=== PATIENT | female | born 1970 | race Caucasian/White ===

== ENCOUNTER 2019-02-09 08:18 | Observation (INO) ==
[2019-02-09] MEDS ORDERED: MECLIZINE HCL 25 MG TAB PO STA (08:42)
[2019-02-09] MEDS ORDERED: SODIUM CHLORIDE 0.9% 1000ML 1,000 ML IV SCH (08:45)
--- NOTE | 2019-02-09 08:50 | Emergency Department Note ---
History of Present Illness General Chief complaint: Syncope (Near Syncope) Stated complaint: FEELS LIKE IM GOING TO PASSOUT,UNSTEADY WHEN WALKI Time Seen by Provider: 02/09/19 08:32 History of Present Illness Maximum Pain Intensity: 0 This is a 49-year-old female that presents to the emergency department via private vehicle with complaints of "feels like going to pass out, unsteady when walking". Patient has a history of vertigo 15 years ago. 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 She notes that when she woke up around 6 AM she went up to walk and felt like she was going to fall over and then she noticed the room felt like it was spinning a little bit and as if she was going to pass out. This was with walking when she lexi from the bed but then went to lay back down and felt worse. She notes that all of her symptoms now are worsened with position change of the head. She is unsure if she truly does experience an vertigo and notes it was not nearly as severe as it was 15 years ago. No headache or diplopia. No chest pain or shortness of breath. She notes that she did not drink much fluid over the evening. She also feels like she may be getting a URI with her son having similar symptoms. No speech troubles or weakness. Home Medications Home Medications Medication Instructions Recorded Confirmed Type biotin 0 mg PO QAM 02/09/19 02/09/19 History metoprolol tartrate 50 mg PO BID 02/09/19 02/09/19 History Allergies Allergy/AdvReac Type Severity Reaction Status Date / Time Sulfa (Sulfonamide Allergy Severe feels like Unverified 02/09/19 09:10 Antibiotics) heart is pounding out of chest Past Med/Surg History Medical History History of hysterectomy (Chronic) 02/2011 - uterus, cervix removed Anxiety (Chronic) Obesity (Chronic) Hypertension (Chronic) Surgical History S/P BSO (bilateral salpingo-oophorectomy) (Chronic) 07/2012 History of incisional hernia repair (Chronic) 08/20/2012 Dr Adames - [facility] History of cholecystectomy (Chronic) 1999 No pertinent past surgical history Family History Grandfather Coronary heart disease Sister Hypertension Mother Hypertension Social History Preferred Language: [place] Island[place] Communication Ability: Effective Chief Of Pediatric Urology Required: No Beliefs That Will Affect Care: None Current Living Situation: Family Current Living Situation Comment: lives with son Other Information That Helps Us Care for You: No Feels Safe at Home: Yes Safety Concerns: Feels Safe At This Time Smoking Status: Never smoker Do You Dip or Chew Tobacco: No Second Hand Exposure: No Tobacco Cessation Education Requested by Patient: No Hx Alcohol Use: No Hx Substance Use: No Review of Systems A total of 10 systems reviewed and were otherwise negative Physical Exam Vital Signs Vital Signs - 24 hr 02/09/19 08:21 02/09/19 08:36 02/09/19 08:40 Temperature 36.4 C L Temperature Source Oral Sepsis Recent Fever Within 48 Hours No Sepsis New/Unexplained Change in Mental Status No Sepsis Action Taken by Nursing No Action Required Pulse Rate - Lying Pulse Rate - Sitting Pulse Rate - Standing Pulse Rate 60 63 61 Pulse Rate [Apical] Pulse Rate from SpO2 Sensor Pulse Rhythm [Apical] Pulse Strength [Apical] Respiratory Rate 18 21 13 Respiratory Effort / Characteristics Non-Labored Spontaneous Respiratory Depth Normal Respiratory Pattern Regular Blood Pressure - Lying Blood Pressure - Sitting Blood Pressure- Standing Blood Pressure 170/112 H Blood Pressure [Right Arm] Blood Pressure Mean 131 Blood Pressure Mean [Right Arm] Blood Pressure Position [Right Arm] Pulse Oximetry 98 Oxygen Delivery Method Room Air 02/09/19 08:50 02/09/19 09:00 02/09/19 09:06 Temperature Temperature Source Sepsis Recent Fever Within 48 Hours Sepsis New/Unexplained Change in Mental Status Sepsis Action Taken by Nursing Pulse Rate - Lying 57 L Pulse Rate - Sitting 67 Pulse Rate - Standing 62 Pulse Rate 62 56 L 59 L Pulse Rate [Apical] Pulse Rate from SpO2 Sensor Pulse Rhythm [Apical] Pulse Strength [Apical] Respiratory Rate 18 20 16 Respiratory Effort / Characteristics Respiratory Depth Respiratory Pattern Blood Pressure - Lying 156/101 H Blood Pressure - Sitting 169/104 H Blood Pressure- Standing 195/99 H Blood Pressure Blood Pressure [Right Arm] Blood Pressure Mean Blood Pressure Mean [Right Arm] Blood Pressure Position [Right Arm] Pulse Oximetry Oxygen Delivery Method Room Air 02/09/19 09:07 02/09/19 09:08 02/09/19 09:09 Temperature Temperature Source Sepsis Recent Fever Within 48 Hours Sepsis New/Unexplained Change in Mental Status Sepsis Action Taken by Nursing Pulse Rate - Lying Pulse Rate - Sitting Pulse Rate - Standing Pulse Rate 63 66 64 Pulse Rate [Apical] Pulse Rate from SpO2 Sensor 64 65 63 Pulse Rhythm [Apical] Pulse Strength [Apical] Respiratory Rate 18 14 20 Respiratory Effort / Characteristics Respiratory Depth Respiratory Pattern Blood Pressure - Lying Blood Pressure - Sitting Blood Pressure- Standing Blood Pressure 156/101 H 169/104 H 195/99 H Blood Pressure [Right Arm] Blood Pressure Mean 119 125 131 Blood Pressure Mean [Right Arm] Blood Pressure Position [Right Arm] Pulse Oximetry 97 97 97 Oxygen Delivery Method 02/09/19 09:10 02/09/19 09:11 02/09/19 09:12 Temperature Temperature Source Sepsis Recent Fever Within 48 Hours Sepsis New/Unexplained Change in Mental Status Sepsis Action Taken by Nursing Pulse Rate - Lying Pulse Rate - Sitting Pulse Rate - Standing Pulse Rate 57 L 57 L Pulse Rate [Apical] 57 L Pulse Rate from SpO2 Sensor 58 L 56 L Pulse Rhythm [Apical] Regular Pulse Strength [Apical] Normal Respiratory Rate 18 21 17 Respiratory Effort / Characteristics Non-Labored Respiratory Depth Normal Respiratory Pattern Regular Blood Pressure - Lying Blood Pressure - Sitting Blood Pressure- Standing Blood Pressure 160/90 H Blood Pressure [Right Arm] 160/90 H Blood Pressure Mean 113 Blood Pressure Mean [Right Arm] 113 Blood Pressure Position [Right Arm] Sitting Pulse Oximetry 97 97 97 Oxygen Delivery Method Room Air 02/09/19 09:20 02/09/19 09:30 02/09/19 09:37 Temperature Temperature Source Sepsis Recent Fever Within 48 Hours Sepsis New/Unexplained Change in Mental Status Sepsis Action Taken by Nursing Pulse Rate - Lying Pulse Rate - Sitting Pulse Rate - Standing Pulse Rate 53 L 55 L 54 L Pulse Rate [Apical] Pulse Rate from SpO2 Sensor 52 L 56 L 54 L Pulse Rhythm [Apical] Pulse Strength [Apical] Respiratory Rate 14 25 H 19 Respiratory Effort / Characteristics Respiratory Depth Respiratory Pattern Blood Pressure - Lying Blood Pressure - Sitting Blood Pressure- Standing Blood Pressure 141/95 H Blood Pressure [Right Arm] Blood Pressure Mean 110 Blood Pressure Mean [Right Arm] Blood Pressure Position [Right Arm] Pulse Oximetry 97 97 98 Oxygen Delivery Method 02/09/19 09:40 02/09/19 09:50 02/09/19 10:02 Temperature Temperature Source Sepsis Recent Fever Within 48 Hours Sepsis New/Unexplained Change in Mental Status Sepsis Action Taken by Nursing Pulse Rate - Lying Pulse Rate - Sitting Pulse Rate - Standing Pulse Rate 59 L 62 58 L Pulse Rate [Apical] Pulse Rate from SpO2 Sensor 59 L 61 Pulse Rhythm [Apical] Pulse Strength [Apical] Respiratory Rate 20 15 21 Respiratory Effort / Characteristics Respiratory Depth Respiratory Pattern Blood Pressure - Lying Blood Pressure - Sitting Blood Pressure- Standing Blood Pressure Blood Pressure [Right Arm] Blood Pressure Mean Blood Pressure Mean [Right Arm] Blood Pressure Position [Right Arm] Pulse Oximetry 99 100 Oxygen Delivery Method 02/09/19 10:03 02/09/19 10:10 02/09/19 10:20 Temperature Temperature Source Sepsis Recent Fever Within 48 Hours Sepsis New/Unexplained Change in Mental Status Sepsis Action Taken by Nursing Pulse Rate - Lying Pulse Rate - Sitting Pulse Rate - Standing Pulse Rate 59 L 55 L 56 L Pulse Rate [Apical] Pulse Rate from SpO2 Sensor 58 L 56 L 56 L Pulse Rhythm [Apical] Pulse Strength [Apical] Respiratory Rate 17 16 18 Respiratory Effort / Characteristics Respiratory Depth Respiratory Pattern Blood Pressure - Lying Blood Pressure - Sitting Blood Pressure- Standing Blood Pressure 150/127 H Blood Pressure [Right Arm] Blood Pressure Mean 134 Blood Pressure Mean [Right Arm] Blood Pressure Position [Right Arm] Pulse Oximetry 97 97 97 Oxygen Delivery Method 02/09/19 10:30 02/09/19 10:34 02/09/19 11:49 Temperature Temperature Source Sepsis Recent Fever Within 48 Hours Sepsis New/Unexplained Change in Mental Status Sepsis Action Taken by Nursing Pulse Rate - Lying Pulse Rate - Sitting Pulse Rate - Standing Pulse Rate 54 L 61 Pulse Rate [Apical] Pulse Rate from SpO2 Sensor 54 L Pulse Rhythm [Apical] Pulse Strength [Apical] Respiratory Rate 20 18 Respiratory Effort / Characteristics Respiratory Depth Respiratory Pattern Blood Pressure - Lying Blood Pressure - Sitting Blood Pressure- Standing Blood Pressure 124/89 Blood Pressure [Right Arm] 120/72 Blood Pressure Mean Blood Pressure Mean [Right Arm] 88 Blood Pressure Position [Right Arm] Pulse Oximetry 96 96 Oxygen Delivery Method Room Air VITAL SIGNS - Vital signs and nursing notes were reviewed. Hypertensive, afebrile. GENERAL -49-year-old female appearing her stated age who is in no acute distress. Communicates well with provider and answers questions appropriately. SKIN - Without rashes. No meningeal or petechial rash. HEAD - NC/AT. EYES - PERRL with EOMI bilaterally. Sclera anicteric. EARS - No deformities of external structures noted on gross examination bilaterally. No pain elicited with palpation of the tragus bilaterally. Tympanic membranes pearly lindo without retraction or bulging. No fluid or purulent material visualized behind the TM. Handle of malleus, umbo, cone of light, pars tensa/flaccid all easily visualized. NOSE - Midline and without cyanosis. No epistaxis or purulent drainage noted. Septum midline without deviation or septal hematoma noted. MOUTH/OROPHARYNX - Without perioral cyanosis. Buccal mucosa pink and moist and without leukoplakia. Tongue midline with equal elevation of palate bilaterally. No tonsillar hypertrophy, erythema, or exudates noted. Good dentition noted. NECK - Neck with FROM. Supple to palpation. No lymphadenopathy noted. No nuchal rigidity. LUNGS - Chest wall symmetric without accessory muscle use, intercostals retractions, or central cyanosis. Normal vesicular breath sounds CTA B/L. No wheezes, rales, or rhonchi appreciated. CARDIAC - RRR with S1/S2. No murmur, rubs, or gallops appreciated. ABDOMEN - Abdominal contour normla without pulsations or visible masses. BS normoactive all four quadrants. No tenderness, palpable masses, he patosplenomegaly, or ascites noted. EXTREMITIES - No clubbing or peripheral cyanosis. No pretibial edema present. +5/5 strength noted in UE/LE bilaterally. NEUROLOGIC - Cranial nerves II through XII grossly intact. Sensory intact to light touch throughout. PSYCH - A&Ox3 and cooperates fully with examiner. Pt is very pleasant and interacts well with examiner. Course Administered Medications Discontinued Medications Aspirin (Aspirin) 324 mg PO NOW STA Stop: 02/09/19 11:26 Last Admin: 02/09/19 11:33 Dose: 324 mg Documented by: [id number] Sodium Chloride (Nss 1000ml) 1,000 mls @ 999 mls/hr IV .Q1H1M GEN Stop: 02/09/19 09:45 Last Infusion: 02/09/19 10:29 Dose: 0 mls/hr Documented by: [id number] Admin: 02/09/19 09:10 Dose: 999 mls/hr Documented by: [id number] Meclizine HCl (Antivert) 25 mg PO NOW STA Stop: 02/09/19 08:43 Last Admin: 02/09/19 08:53 Dose: 25 mg Documented by: [id number] Medical Decision Making Laboratory Data Result diagrams: 02/09/19 09:04 02/09/19 09:04 Lab Results 02/09/19 02/09/19 02/09/19 Range/Units 09:04 09:04 09:04 WBC 6.10 (4.8-10.8) K/uL RBC 4.73 (4.2-5.4) M/uL Hgb 13.4 (12.0-16.0) g/dL Hct 42.0 (37-47) % MCV 88.8 (80-100) fL MCH 28.3 (25-34) pg MCHC 31.9 L (32-36) g/dL RDW Std Deviation 46.3 (36.4-46.3) fL RDW Coeff of Keiry 14.3 (11.5-14.5) % Plt Count 169 (130-400) K/uL MPV 11.3 H (7.4-10.4) fL Immature Gran % (Auto) 0.2 % Neut % (Auto) 62.2 % Lymph % (Auto) 27.2 % [place] % (Auto) 8.5 % Eos % (Auto) 1.6 % Baso % (Auto) 0.3 % Immature Gran # (Auto) 0.01 (0.00-0.02) K/uL Neut # (Auto) 3.79 (1.4-6.5) K/uL Lymph # (Auto) 1.66 (1.2-3.4) K/uL [place] # (Auto) 0.52 (0.11-0.59) K/uL Eos # (Auto) 0.10 (0-0.5) K/uL Baso # (Auto) 0.02 (0-0.2) K/uL Sodium 144 (136-145) mmol/L Potassium 3.6 (3.5-5.1) mmol/L Chloride 109 H (98-107) mmol/L Carbon Dioxide 26 (21-32) mmol/L Anion Gap 8.0 (3-11) BUN 14 (7-18) mg/dl Creatinine 0.81 (0.6-1.2) mg/dl Est Cr Clr Drug Dosing 110.4 ml/min Est GFR ( Amer) 98.2 Est GFR (Non-Af Amer) 84.7 BUN/Creatinine Ratio 17.7 (10-20) Glucose 120 H (70-99) mg/dl Calcium 8.7 (8.5-10.1) mg/dl Magnesium 2.2 (1.8-2.4) mg/dl Total Bilirubin 0.7 (0.2-1) mg/dl AST 25 (15-37) U/L ALT 34 (12-78) U/L Alkaline Phosphatase 83 (45-117) U/L Troponin I (0-0.045) ng/ml Total Protein 6.8 (6.4-8.2) gm/dl Albumin 3.4 (3.4-5.0) gm/dl Globulin 3.4 (2.5-4.0) gm/dl Albumin/Globulin Ratio 1.0 (0.9-2) TSH 6.210 H (0.300-4.500) uIu/ml Free T4 1.05 (0.8-1.6) ng/dl HCG, Qual Negative (Negative) Urine Color Urine Appearance (Clear) Urine pH (4.5-7.5) Ur Specific [place] (1.000-1.030) Urine Protein (Negative) Urine Glucose (UA) (Negative) Urine Ketones (Negative) Urine Blood (Negative) Urine Nitrite (Negative) Urine Bilirubin (Negative) Urine Urobilinogen (Negative) Ur Leukocyte Esterase (Negative) 02/09/19 02/09/19 Range/Units 09:04 09:55 WBC (4.8-10.8) K/uL RBC (4.2-5.4) M/uL Hgb (12.0-16.0) g/dL Hct (37-47) % MCV (80-100) fL MCH (25-34) pg MCHC (32-36) g/dL RDW Std Deviation (36.4-46.3) fL RDW Coeff of Keiry (11.5-14.5) % Plt Count (130-400) K/uL MPV (7.4-10.4) fL Immature Gran % (Auto) % Neut % (Auto) % Lymph % (Auto) % [place] % (Auto) % Eos % (Auto) % Baso % (Auto) % Immature Gran # (Auto) (0.00-0.02) K/uL Neut # (Auto) (1.4-6.5) K/uL Lymph # (Auto) (1.2-3.4) K/uL [place] # (Auto) (0.11-0.59) K/uL Eos # (Auto) (0-0.5) K/uL Baso # (Auto) (0-0.2) K/uL Sodium (136-145) mmol/L Potassium (3.5-5.1) mmol/L Chloride (98-107) mmol/L Carbon Dioxide (21-32) mmol/L Anion Gap (3-11) BUN (7-18) mg/dl Creatinine (0.6-1.2) mg/dl Est Cr Clr Drug Dosing ml/min Est GFR ( Amer) Est GFR (Non-Af Amer) BUN/Creatinine Ratio (10-20) Glucose (70-99) mg/dl Calcium (8.5-10.1) mg/dl Magnesium (1.8-2.4) mg/dl Total Bilirubin (0.2-1) mg/dl AST (15-37) U/L ALT (12-78) U/L Alkaline Phosphatase (45-117) U/L Troponin I < 0.015 (0-0.045) ng/ml Total Protein (6.4-8.2) gm/dl Albumin (3.4-5.0) gm/dl Globulin (2.5-4.0) gm/dl Albumin/Globulin Ratio (0.9-2) TSH (0.300-4.500) uIu/ml Free T4 (0.8-1.6) ng/dl HCG, Qual (Negative) Urine Color Yellow Urine Appearance Clear (Clear) Urine pH 6.5 (4.5-7.5) Ur Specific [place] 1.013 (1.000-1.030) Urine Protein Negative (Negative) Urine Glucose (UA) Negative (Negative) Urine Ketones Negative (Negative) Urine Blood Negative (Negative) Urine Nitrite Negative (Negative) Urine Bilirubin Negative (Negative) Urine Urobilinogen Negative (Negative) Ur Leukocyte Esterase Negative (Negative) Imaging Data Radiologist's Impression: XR chest 1V portable CLINICAL HISTORY: near syncope dyspnea COMPARISON STUDY: 05/17/2011 FINDINGS: Mild cardia megaly. Lungs are clear. Diaphragms are smooth. IMPRESSION: Mild cardiomegaly. Otherwise negative study. The above report was generated using voice recognition software. It may contain grammatical, syntax or spelling errors. Electronically signed by: Bro Wyman M.D. 02/09/2019 8:55 AM MDM Narrative Patient was seen and evaluated as above in room A 11. Review was performed of nursing notes and vital signs. After obtaining a thorough history and physical examination the above work up was performed. She presents to us today with essentially near syncope. She appears to have symptoms that are likely from that of vertigo and noting that she had symptoms similar about 15 years ago. There is no chest pain or shortness of breath. A bedside EKG was performed and revealed normal sinus rhythm with T wave inversions in leads I, 2 as well as aVL, aVF, V3, 4 5 and 6. These were compared to the EKG on file in our hospital that was last in 2006. There is a significant change now. I was able to obtain an EKG from the [facility] system from 2011 and although the T wave inversions do not appear to be new the severity of these has changed. It is felt now that this warrants further workup here in the hospital given her symptoms as well as abnormal EKG. CBC reveals no leukocytosis or concerning anemia no emergent metabolic abnormality. Troponin is negative. Urinalysis is negative. Patient notes that she was informed she had an abnormal EKG a few years ago and was evaluated at [facility] but notes that she never underwent the stress test that was recommended. I do believe that given her symptoms today as well as her abnormal EKG that further evaluation and management is warranted in the inpatient setting. Please refer to further documentation regarding her stay. Case was discussed with the attending physician. In the evaluation and treatment of this patient, the following differential diagnoses were considered: MA, ASC, CVA, vertigo, dissection, dysrhythmia, Angina, Mediastinitis, GERD, Esophagitis, PE, Pneumonia, Bronchitis, Costochondritis, Rib Fracture, Zoster, among others. Impression & Plan Abnormal EKG, Lightheadedness Discharge Plan Visit Data *Final* Discharge Date/Time: 02/09/19 11:49 Chief Complaint: Syncope (Near Syncope) Stated Complaint: FEELS LIKE IM GOING TO PASSOUT,UNSTEADY WHEN WALKI ED Provider: [facility] Midlevel Provider: Shravan [facility] Discharge Problem: Abnormal EKG, Lightheadedness Patient Disposition: Admitted As Inpatient Condition: Good Discharge Instructions Interventions: ED Discharge Assessment Last Done: 02/09/19 11:49
--- NOTE | 2019-02-09 08:56 | XRay Report ---
XR chest 1V portable CLINICAL HISTORY: near syncope dyspnea COMPARISON STUDY: 05/17/2011 FINDINGS: Mild cardia megaly. Lungs are clear. Diaphragms are smooth. IMPRESSION: Mild cardiomegaly. Otherwise negative study. The above report was generated using voice recognition software. It may contain grammatical, syntax or spelling errors. Electronically signed by: Bro Wyman M.D. 02/09/2019 8:55 AM
[2019-02-09 09:15] LABS: Basophils # (auto) 0.02 K/uL (0-0.2); Basophils % (auto) 0.3 %; Eosinophils % (auto) 1.6 %; Hemoglobin 13.4 g/dL (12.0-16.0); Immature Granulocytes # (auto) 0.01 K/uL (0.00-0.02); Immature Granulocytes % (auto) 0.2 %; Lymphocytes # (auto) 1.66 K/uL (1.2-3.4); Lymphocytes % (auto) 27.2 %; Mean Corpuscular Hgb Conc 31.9 g/dL (32-36); Mean Corpuscular Volume 88.8 fL (80-100); Mean Platelet Volume 11.3 fL (7.4-10.4); Monocytes # (auto) 0.52 K/uL (0.11-0.59); Monocytes % (auto) 8.5 %; Neutrophils # (auto) 3.79 K/uL (1.4-6.5); Neutrophils % (auto) 62.2 %; Platelet Count 169 K/uL (130-400); RDW Coefficient of Variation 14.3 % (11.5-14.5); RDW Standard Deviation 46.3 fL (36.4-46.3); Red Blood Count 4.73 M/uL (4.2-5.4)
[2019-02-09 09:27] LABS: Pregnancy Test, Serum Negative (Negative)
[2019-02-09 09:31] LABS: Albumin Level 3.4 gm/dl (3.4-5.0); BUN Creatinine Ratio 17.7 (10-20); Calcium 8.7 mg/dl (8.5-10.1); Creatinine Clr Calc Pharmacy 110.4 ml/min; Est GFR (African American) 98.2; Est GFR (Non-African American) 84.7; Magnesium 2.2 mg/dl (1.8-2.4); Potassium 3.6 mmol/L (3.5-5.1)
[2019-02-09 09:42] LABS: Bilirubin,Total 0.7 mg/dl (0.2-1); Globulin 3.4 gm/dl (2.5-4.0); Total Protein 6.8 gm/dl (6.4-8.2)
[2019-02-09 09:54] LABS: T4 Free Thyroxine 1.05 ng/dl (0.8-1.6)
[2019-02-09 10:08] LABS: Appearance Urine Clear (Clear); Bilirubin Urine Negative (Negative); Blood Urine Negative (Negative); Color Urine Yellow; Glucose Urine UA Negative (Negative); Ketones Urine Negative (Negative); Leukocyte Esterase Urine Negative (Negative); Nitrite Urine Negative (Negative); Protein Urine Negative (Negative); Specific Gravity Urine 1.013 (1.000-1.030); Urobilinogen Urine Negative (Negative); pH Urine 6.5 (4.5-7.5)
[2019-02-09] MEDS ORDERED: ASPIRIN CHEW 324 MG PO STA (11:25)
--- NOTE | 2019-02-09 11:36 | CT Scan Report ---
CT head/brain wo con CLINICAL HISTORY: 49 years-old Female with dizzy. Acute dizziness with near syncope TECHNIQUE: Multiple axial CT images of the head were obtained without contrast. A dose lowering tech nique was utilized adhering to the principles of ALARA. CT DOSE: 776.86 mGycm COMPARISON: None. FINDINGS: No acute intracranial hemorrhage, midline shift, intra-axial mass, hydrocephalus, territorial ischemi a or abnormal extra-axial collection. Multiple lipomata measuring up to 8 mm noted about the falx cer ebri. The calvarium is intact. The paranasal sinuses, mastoid air cells, and middle ear cavities are clear . IMPRESSION: No acute intracranial abnormality. The above report was generated using voice recognition software. It may contain grammatical, syntax o r spelling errors. Electronically signed by: Abilio Lozano M.D. 02/09/2019 11:35 AM
--- NOTE | 2019-02-09 11:38 | History & Physical Report ---
Date of Service February 09, 2019 Assessment & Plan (1) Lightheadedness: Pt presented to ER with lightheaded/pre-syncope sensation since this morning. Occurs with position change. Denies spinning sensation. Denies any CP, SOB, syncope, diaphoresis In ER patient afebrile, R: 18, P: 60-54, BP: 170/112 down to 141/95, 98% on RA. No leukocytosis, Hgb: 13.4, Bun: 14, Cr: 0.8, gluc: 120, magnesium: 2.2, TSH: 6.2, Free T4: 1.05, negative troponin, UA negative. EKG: T wave inversions inferior, anterior, lateral leads CXR: Mild cardiomegaly. Otherwise negative study. CT HEAD: No acute intracranial abnormality. In ER was given 1 L NSS, meclizine 25 mg p.o. and she reports decreased symptoms however is still symptomatic with position change. DDX: orthostatic hypotension, vertigo, arrhythmia, cardiomyopathy -tele to monitor -orthostatic vital signs -will add D-dimer -monitor (2) Abnormal EKG: Today EKG: T wave inversions inferior, anterior, lateral leads. Initial troponin negative. No CP, SOB 10/11/15 EKG report from [facility]: T wave inversions inferior lateral leads R/O ACS. Risk factors: HTN, obesity, FH CAD -Monitor Vitals -Repeat EKG in am -Will trend troponin -Echo -lipid panel -ASA -continue beta tito -Nitro prn CP and repeat EKG for CP (3) Hypertension: In ER BP: 170/112 down to 141/95 -continue metoprolol -monitor BP (4) Obesity: BMI: 54 -Lifestyle modifications recommended (5) Anxiety: Hx panic attacks. Not on medications. -monitor DVT Prophylaxis -Heparin SQ Full Code Follows with Dr Margret Anthony for routine care Pt was seen with Dr Garrido. See addendum History of Present Illness Chief Complaint: Lightheaded Primary Care Provider: Margret Anthony DO Pt is 49 y/o F with PMH HTN, morbid obesity, anxiety presented to ER with complaint of lightheadedness. Patient states work change got home around 3:00 AM today. States she ate and then went to sleep. Reports she woke up around 6:00 AM and when she sat up to get out of bed she felt lightheaded and felt like she was going to pass out. Patient states she then tried to walk to the bathroom and continued with lightheadedness sensation and states felt like she had a hard time walking and felt like she is going to fall over. Patient states after bathroom sat and symptoms resolved. Patient states try to walk again had recurrent lightheadedness. Patient states then she started to feel anxious and felt like her throat was closing which is her typical anxiety symptoms. She states "talk myself out of it" anxiety symptoms resolved. Denies spinning s ensation. Denies any CP, SOB, syncope, diaphoresis today. Took metoprolol this morning and missed dose last night. Pt reports chronic SOB with climbing flight of stairs. She reports that she is not very active. 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 States last week had left anterior chest discomfort with ROM of neck and arm that lasted one day and resolved. Pt thought was pulled muscle at that time. Reports chronic nasal congestion and takes OTC Sudafed PE intermittently, last use was one week ago. States approx 15 years ago had similar lightheaded symptoms and reports was diagnosed with vertigo at that time. Denies fever/chills, N/V/D/C, RODRIGUEZ, syncope, vision changes, neck pain, orthopnea, palpitations, cough, sore throat, choking, otalgia, rhinorrhea, abdominal pain, paresthesias, weakness, extremity weakness, extremity edema, rashes, urinary symptoms, head injury/trauma. Patient reports history 10/11/15 hospitalization at [facility] for EKG changes. States that she took OTC diet pill which made her have palpitations and anxiety and she was found to have EKG changes at that time. Patient states had normal inpatient workup and stress test was recommended however she did not have completed at that time secondary to insurance issues. Outpatient records reviewed and EKG report: T wave inversion inferior, lateral leads. (Unable to visualize tracing). 07/2012 EKG report: ST and T wave abnormality, consider lateral ischemia (unable to visualize copy of EKG tracing). Allergies Allergy/AdvReac Type Severity Reaction Status Date / Time Sulfa (Sulfonamide Allergy Severe feels like Unverified 02/09/19 09:10 Antibiotics) heart is pounding out of chest Home Medications Home Medications Medication Instructions Recorded Confirmed Type biotin 0 mg PO QAM 02/09/19 02/09/19 History metoprolol tartrate 50 mg PO BID 02/09/19 02/09/19 History Past Med/Surg History Medical History History of hysterectomy (Chronic) 02/2011 - uterus, cervix removed Anxiety (Chronic) Obesity (Chronic) Hypertension (Chronic) Surgical History S/P BSO (bilateral salpingo-oophorectomy) (Chronic) 07/2012 History of incisional hernia repair (Chronic) 08/20/2012 Dr Adames - [facility] History of cholecystectomy (Chronic) 1999 No pertinent past surgical history Family History Grandfather Coronary heart disease Sister Hypertension Mother Hypertension Social History Preferred Language: Malay Communication Ability: Effective Labor/Excavator Required: No Beliefs That Will Affect Care: None Current Living Situation: Family Current Living Situation Comment: lives with son Other Information That Helps Us Care for You: No Feels Safe at Home: Yes Safety Concerns: Feels Safe At This Time Smoking Status: Never smoker Do You Dip or Chew Tobacco: No Second Hand Exposure: No Tobacco Cessation Education Requested by Patient: No Hx Alcohol Use: No Hx Substance Use: No Review of Systems Review of Systems: All systems reviewed & are unremarkable except as noted in HPI & below Physical Exam Physical Exam: General: no acute distress, obese Head: normocephalic, atraumatic Eyes: PERRL, EOM's intact, conjunctiva non-injected, anicteric ENT: normal inspection external ears, nose, mucous membranes moist Neck: supple, trachea midline Lungs: clear, no respiratory distress, no wheezing/rhonchi/rales CV: RRR, no murmur, no pretibial edema Abd: normal BS, soft, non-tender Ext: no cyanosis, no calf tenderness, strength equal bilateral upper and lower extremities Neuro: A&O x 3, no focal deficits noted, +lightheaded sensation reproduced with sitting up, no nystagmus noted, normal affect, pt is pleasant Skin: warm, dry Results & Data Vital Signs (Past 12 Hours) Vital Signs Temp Pulse Pulse Resp BP BP Pulse Ox 02/09/19 10:34 120/72 02/09/19 10:30 54 L 20 96 02/09/19 10:20 56 L 18 97 02/09/19 10:10 55 L 16 97 02/09/19 10:03 59 L 17 150/127 H 97 02/09/19 10:02 58 L 21 02/09/19 09:50 62 15 100 02/09/19 09:40 59 L 20 99 02/09/19 09:37 54 L 19 141/95 H 98 02/09/19 09:30 55 L 25 H 97 02/09/19 09:20 53 L 14 97 02/09/19 09:12 57 L 17 160/90 H 97 02/09/19 09:11 57 L 21 160/90 H 97 02/09/19 09:10 57 L 18 97 02/09/19 09:09 64 20 195/99 H 97 02/09/19 09:08 66 14 169/104 H 97 02/09/19 09:07 63 18 156/101 H 97 02/09/19 09:06 59 L 16 02/09/19 09:00 56 L 20 02/09/19 08:50 62 18 02/09/19 08:40 61 13 02/09/19 08:36 63 21 02/09/19 08:21 36.4 C L 60 18 170/112 H 98 Laboratory Results Short CBC 02/09/19 Range/Units 09:04 WBC 6.10 (4.8-10.8) K/uL Hgb 13.4 (12.0-16.0) g/dL Hct 42.0 (37-47) % Plt Count 169 (130-400) K/uL BMP 02/09/19 09:04 Sodium 144 Potassium 3.6 Chloride 109 H Carbon Dioxide 26 BUN 14 Creatinine 0.81 Glucose 120 H Calcium 8.7 Cardiac Enzymes 02/09/19 Range/Units 09:04 Troponin I < 0.015 (0-0.045) ng/ml Liver Function 02/09/19 Range/Units 09:04 Total Bilirubin 0.7 (0.2-1) mg/dl AST 25 (15-37) U/L ALT 34 (12-78) U/L Alkaline Phosphatase 83 (45-117) U/L Albumin 3.4 (3.4-5.0) gm/dl Urine 02/09/19 Range/Units 09:55 Urine Color Yellow Urine Appearance Clear (Clear) Urine pH 6.5 (4.5-7.5) Ur Specific [place]rington 1.013 (1.000-1.030) Urine Protein Negative (Negative) Urine Glucose (UA) Negative (Negative) Diagnostic Findings CXR: IMPRESSION: Mild cardiomegaly. Otherwise negative study CT HEAD: IMPRESSION: No acute intracranial abnormality. Supervising Physician Co-Signing Physician Notes HISTORY: Record reviewed. Patient interviewed and examined. Care coordinated with Kathie Drew PA-C. Please refer to her documentation for patient's history. Briefly, 49 YO F with history of hypertension and obesity. Experiencing dizziness described as lightheadedness, not vertigo. No chest pain, palpitations, or SOB. EXAM: General- no distress Lungs- clear to auscultation; no respiratory distress Cardiovascular- RRR; no murmur; no gallop; no JVD; no pretibial edema Abdomen- + bowel sounds, soft, nontender Extremities- no cyanosis; no calf tenderness Neuro- alert, oriented Skin- warm & dry DATA: Troponin < 0.015. D-dimer 620. Other lab studies as noted. CT head negative. Chest x-ray showed mild cardiomegaly, no infiltrates, effusion, CHF. CTA chest negative for PE. Venous duplex lower extremities negative for DVT. EKG reviewed and showed NSR with T-wave inversions inferiorly and laterally. ASSESSMENT AND PLAN: Lightheadedness. Not orthostatic. NSR. Elevated D-dimer. No evidence of PE or DVT per imaging. Abnormal EKG with inferolateral T-wave inversions. Check echo. Consult Cardiology. Please refer to ELENI Olvera's documentation for discussion of other issues.
[2019-02-09] MEDS ORDERED: NITROGLYCERIN SL 0.4 MG/TAB TAB SL PRN (12:15)
[2019-02-09] MEDS ORDERED: ACETAMINOPHEN 325 MG TAB PO PRN (12:15)
[2019-02-09 12:45] LABS: Partial Thromboplastin Ratio 1.1; Partial Thromboplastin Time 28.8 Seconds (21.0-31.0); Prothrombin Time 10.1 Seconds (9.0-12.0)
[2019-02-09] MEDS ORDERED: PERFLUTREN LIPID MICROSPHERE (DEFINITY) IV ONE (13:22)
[2019-02-09] MEDS: HEPARIN SOD 5,000 UNIT/0.5 ML VIAL SQ SCH ×2 (15:10→20:37)
[2019-02-09 15:19] LABS: D Dimer 620 ug/L FEU (0-500)
[2019-02-09] MEDS ORDERED: OPTIRAY 320 125ml IV PRN (20:11)
--- NOTE | 2019-02-09 20:22 | CT Scan Report ---
CT angio chest PE protocol CLINICAL HISTORY: 49 years-old Female presenting with lightheadedness, clinical concern for pulmonary embolus. TECHNIQUE: Multidetector CT angiography of the chest was performed after administration of intravenou s contrast. 3-D volumetric and/or maximum intensity projection (MIP) images were subsequently reconst ructed for review. IV contrast: 116 mL of Optiray 320. One or more dose lowering techniques were used consistent with the principles of ALARA (as low as reasonably achievable), including automatic expos ure control, mA or kV adjustment to individual patient size, and/or use of iterative reconstruction. COMPARISON: None. CT DOSE (mGy.cm): The estimated cumulative dose is 594.66 mGy.cm. FINDINGS: Notched Blade Loader topogram: Cholecystectomy clips. Pulmonary vasculature: The study is suboptimal for the assessment of the pulmonary vascular tree secondary to timing of the contrast bolus and respiratory motion artifact. Allowing for limited image quality, no central fillin g defect to suggest pulmonary embolus. Main pulmonary artery is not enlarged. No flattening of the in terventricular septum. No intracardiac filling defect. No reflux of contrast into the hepatic veins. Remaining chest: Soft tissues: Normal thyroid and thoracic inlet. No axillary, supraclavicular, mediastinal, or hilar lymphadenopathy. 4 vessel aortic arch. Normal heart size. No pericardial or pleural effusion. Hepatic steatosis. Lungs and airways: No pneumothorax. Central airways patent. Pulmonary arteries are not significantly enlarged relative to adjacent bronchi. No interlobular septal thickening. Pelvic opacities in the cinthya gula and to a lesser extent in the right middle lobe likely atelectasis. No other focal nodule or inf iltrate. Musculoskeletal: Degenerative changes of the spine. IMPRESSION: 1. Allowing for suboptimal image quality, no evidence of pulmonary embolus. No convincing evidence o f acute intrathoracic pathology. Electronically signed by: Noah Lopez M.D. 02/09/2019 8:20 PM
--- NOTE | 2019-02-09 20:24 | Ultrasound Report ---
US venous doppler LE CLINICAL HISTORY: 49 years-old Female presenting with elevated D-dimer. TECHNIQUE: Real-time grayscale and color and spectral Doppler ultrasound imaging of the veins of the bilateral lower extremities was performed. Compression and augmentation were also utilized. COMPARISON: None. FINDINGS: RIGHT: Common femoral vein: Patent. Greater saphenous vein (superficial): Patent. Deep femoral vein: Patent. Femoral vein: Patent. Popliteal vein: Patent. Calf veins: Patent. LEFT: Common femoral vein: Patent. Greater saphenous vein (superficial): Patent. Deep femoral vein: Patent. Femoral vein: Patent. Popliteal vein: Patent. Calf veins: Patent. Other: None. IMPRESSION: No evidence of deep venous thrombosis. Electronically signed by: Noah Lopez M.D. 02/09/2019 8:23 PM
[2019-02-09] MEDS: METOPROLOL TARTRATE 50 MG TAB PO SCH (20:36)
[2019-02-10] MEDS: HEPARIN SOD 5,000 UNIT/0.5 ML VIAL SQ SCH ×2 (06:06→13:46)
[2019-02-10] MEDS: METOPROLOL TARTRATE 50 MG TAB PO SCH (07:37)
[2019-02-10 08:02] LABS: Chol HDL Ratio 2; Cholesterol 124 mg/dl (0-200); HDL Cholesterol 51 mg/dl; LDL Cholesterol Calculated 57 mg/dl; Triglycerides 80 mg/dl (0-150); VLDL Cholesterol 16 mg/dl
[2019-02-10 08:03] LABS: Estimated Average Glucose 117 mg/dl; Hemoglobin A1C 5.7 % (4.5-5.6)
[2019-02-10] MEDS ORDERED: ASPIRIN 81 MG ECTAB PO SCH (09:00)
--- NOTE | 2019-02-10 14:42 | Consultation Report ---
DATE OF CONSULTATION: 02/10/2019 INPATIENT CARDIOLOGY CONSULTATION CONSULTATION REQUESTED BY: Kathie Olvera PA-C. REASON FOR CONSULTATION: Markedly abnormal EKG and lightheadedness. HISTORY OF PRESENT ILLNESS: Ms. Deal is a very pleasant 49-year-old woman who presented to [facility] early in the a.m. of 02/09/2019 with the complaints of significant lightheadedness. The patient states that she was in her normal state of health last night when she got home from work approximately 3:00 a.m. and she went to bed. She woke up then at 6:00 a.m. again to go to the bathroom and she noted that very quickly upon standing, she got significantly lightheaded. She states that she is not quite sure if the room was spinning around her, she is noted that she felt very lightheaded and was a little wobbly on her feet. She then laid down, but again when she tried to sit up, the lightheadedness reoccurred. She became concerned and came into the Emergency Department. In the Emergency Department, her EKG was significantly abnormal and she was admitted to telemetry. Currently, she states that now she is feeling as though she is having more and more sinus congestion and thinks this may be an early sign of acute sinusitis. Of note, the patient has a longstanding history of abnormal EKG; however, she has never followed up with cardiology due to insurance restrictions in the past, but she now does have insurance. Otherwise, she denies experiencing any chest pain, shortness of breath, palpitations or syncope. PAST SURGICAL HISTORY: 1. Laparoscopic cholecystectomy. 2. Partial hysterectomy. 3. Hernia repair. MEDICAL ILLNESSES: 1. Hypertension. 2. Obesity. FAMILY HISTORY: Denies any premature coronary artery disease or sudden cardiac . SOCIAL HISTORY: Denies any alcohol, tobacco or recreational drug use. She is single. She is currently employed at [employer]. REVIEW OF SYSTEMS: As per HPI, all other review of systems reviewed and negative at this time. ALLERGIES: SULFA. MEDICATIONS AN OUTPATIENT: Metoprolol 50 mg b.i.d. PHYSICAL EXAMINATION: VITALS: Temperature 36.7, pulse 52, respiratory rate 12, blood pressure 102/68. GENERAL: Awake, alert, oriented x3 in no acute distress. HEENT: Normocephalic, atraumatic. Pupils equal, round, and reactive to light and accommodation. Extraocular muscles intact. Anicteric sclerae. Moist mucous membranes. NECK: No JVD, no bruit. CARDIOVASCULAR: Regular. No S4. Normal S1 and S2. No S3. No murmurs or rubs. PULMONARY: Clear to auscultation bilaterally. No rales, rhonchi, or wheezing. ABDOMEN: Bowel sounds x4, soft. No rebound, guarding, tenderness. No organomegaly. EXTREMITIES: No clubbing, cyanosis or edema. +2 pedal pulses bilaterally. SKIN: Warm and dry. TEST RESULTS: A 12-lead EKG performed in the Emergency Department independently reviewed at this time shows sinus bradycardia at 56 beats per minute, borderline prolonged QT interval, deep T-wave inversions in the lateral and anterolateral leads. A 2D echocardiogram was read as normal LV chamber size with mild concentric LVH, normal LV systolic function, EF 55-60%, no segmental left ventricular wall motion abnormalities are noted, grade 2 diastolic dysfunction, no significant valvular pathology. IMPRESSION: 1. Lightheadedness. 2. Abnormal EKG with normal wall motion on resting echocardiogram. 3. Hypertension. RECOMMENDATIONS: It was my pleasure to see Ms. Deal in consultation today. From a cardiac standpoint, I do not see any arrhythmogenic cause of her lightheadedness nor any outflow obstruction that may be a possible cause. So at this point, I will ask physical therapy to evaluate for Hallpike and Kaden maneuvers to see if there might be a vertigo component and if there is no improvement there, I would recommend treatment for sinusitis. In terms of her EKG, it is markedly abnormal and also suggestive of possible channelopathy. Luckily, she has never syncopized and she denies any sudden cardiac in family members. For completeness sake, I do believe genetic testing would be appropriate as an outpatient. I will also follow her as an outpatient for further blood pressure management. I doubt that metoprolol is the optimal medication for her and given the relative bradycardia at this point, I will cut it back to 25 mg b.i.d. and further titrate off as an outpatient. Otherwise, it is okay to discharge the patient to home after she has been evaluated by physical therapy from a cardiac standpoint.
--- NOTE | 2019-02-10 16:37 | Hospitalist Progress Note ---
Date of Service February 10, 2019 Assessment & Plan (1) Lightheadedness: Present on admission with lightheaded/pre-syncope sensation with abnormal EKG CT head showed no acute intracranial abnormality CXR showed mild cardiomegaly. Otherwise negative study. PT/OT with no discomfort Resolved (2) Abnormal EK10/11/15 EKG report from [facility]: T wave inversions inferior lateral leads Troponinx3 negative ECHO showed no wall motion abnormality Cardiology on board recommended genetic testing and outpatient testing for possible channelopathy. metoprolol decreased to 25mg BID due to bradycardia and further titrate off as an outpatient. OK from cardiology standpoint to discharge home (3) Hypertension: BP improved Metoprolol decreased to 25mg BID Continue monitor BP (4) Obesity: Lifestyle modifications with diet and exercise (5) Anxiety: Hx panic attacks. Not on medications. Stable DVT Prophylaxis Heparin SQ Full Code Disposition Follow up with your primary care provider Subjective Pt was seen and examined Lying in bed with no distress Pt said that she feels fine She said that the dizziness improves She walked in hallway with no distress Denies any chest pain, palpitation, dizziness and SOB Physical Exam Physical Exam: General- No acute distress, obese Head- atraumatic Eyes- PERRL, EOMI, ENT- oropharynx clear Neck- supple, no JVD Lungs- clear to auscultation Heart- regular rhythm; no murmur Abdomen- normal bowel sounds, soft, nontender Extremities- no calf tenderness Neuro- alert, oriented x 3; PERRL, EOMI; no facial palsy; no dysarthria Skin- warm & dry Results & Data Vital Signs (Past 12 Hours) Vital Signs Temp Pulse Pulse Resp BP Pulse Ox 02/10/19 16:04 36.6 C 54 L 18 121/83 93 02/10/19 15:59 61 02/10/19 11:38 36.7 C 52 L 18 102/68 96 02/10/19 07:24 36.5 C 58 L 18 136/75 95
[2019-02-10] MEDS ORDERED: METOPROLOL TARTRATE 25 MG TAB PO SCH (21:00)
--- NOTE | 2019-02-22 17:12 | Discharge Summary ---
Date of Service February 11, 2019 Admission HPI Per Admitting Provider Pt is 49 y/o F with PMH HTN, morbid obesity, anxiety presented to ER with complaint of lightheadedness. Patient states work change got home around 3:00 AM today. States she ate and then went to sleep. Reports she woke up around 6:00 AM and when she sat up to get out of bed she felt lightheaded and felt like she was going to pass out. Patient states she then tried to walk to the bathroom and continued with lightheadedness sensation and states felt like she had a hard time walking and felt like she is going to fall over. Patient states after bathroom sat and symptoms resolved. Patient states try to walk again had recurrent lightheadedness. Patient states then she started to feel anxious and felt like her throat was closing which is her typical anxiety symptoms. She states "talk myself out of it" anxiety symptoms resolved. Denies spinning sensation. Denies any CP, SOB, syncope, diaphoresis today. Took metoprolol this morning and missed dose last night. Pt reports chronic SOB with climbing flight of stairs. She reports that she is not very active. 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 States last week had left anterior chest discomfort with ROM of neck and arm that lasted one day and resolved. Pt thought was pulled muscle at that time. Reports chronic nasal congestion and takes OTC Sudafed PE intermittently, last use was one week ago. States approx 15 years ago had similar lightheaded symptoms and reports was diagnosed with vertigo at that time. Denies fever/chills, N/V/D/C, RODRIGUEZ, syncope, vision changes, neck pain, orthopnea, palpitations, cough, sore throat, choking, otalgia, rhinorrhea, abdominal pain, paresthesias, weakness, extremity weakness, extremity edema, rashes, urinary symptoms, head injury/trauma. Patient reports history 10/11/15 hospitalization at [facility] for EKG changes. States that she took OTC diet pill which made her have palpitations and anxiety and she was found to have EKG changes at that time. Patient states had normal inpatient workup and stress test was recommended however she did not have completed at that time secondary to insurance issues. Outpatient records reviewed and EKG report: T wave inversion inferior, lateral leads. (Unable to visualize tracing). 07/2012 EKG report: ST and T wave abnormality, consider lateral ischemia (unable to visualize copy of EKG tracing). Admission Exam Per Admitting Provider General: no acute distress, obese Head: normocephalic, atraumatic Eyes: PERRL, EOM's intact, conjunctiva non-injected, anicteric ENT: normal inspection external ears, nose, mucous membranes moist Neck: supple, trachea midline Lungs: clear, no respiratory distress, no wheezing/rhonchi/rales CV: RRR, no murmur, no pretibial edema Abd: normal BS, soft, non-tender Ext: no cyanosis, no calf tenderness, strength equal bilateral upper and lower extremities Neuro: A&O x 3, no focal deficits noted, +lightheaded sensation reproduced with sitting up, no nystagmus noted, normal affect, pt is pleasant Skin: warm, dry Principal Diagnosis Lightheadedness Abnormal EKG Hypertension Obesity Discharge Exam General- No acute distress, obese Head- atraumatic Eyes- PERRL, EOMI, ENT- oropharynx clear Neck- supple, no JVD Lungs- clear to auscultation Heart- regular rhythm; no murmur Abdomen- normal bowel sounds, soft, nontender Extremities- no calf tenderness Neuro- alert, oriented x 3; PERRL, EOMI; no facial palsy; no dysarthria Skin- warm & dry Discharge Data Allergies Allergy/AdvReac Type Severity Reaction Status Date / Time Sulfa (Sulfonamide Allergy Severe feels like Unverified 02/09/19 09:10 Antibiotics) heart is pounding out of chest Consultations 02/09/19 10:23 ED Decision to Admit Stat 02/09/19 16:17 Consult Cardiology Routine Ordered Studies 02/09/19 11:04 CT head/brain wo con Stat 02/09/19 15:45 CT angio chest PE protocol Urgent 02/09/19 16:12 US venous doppler LE BI Routine XR chest 1V portable CLINICAL HISTORY: near syncope dyspnea COMPARISON STUDY: 05/17/2011 FINDINGS: Mild cardia megaly. Lungs are clear. Diaphragms are smooth. IMPRESSION: Mild cardiomegaly. Otherwise negative study. The above report was generated using voice recognition software. It may contain grammatical, syntax or spelling errors. Electronically signed by: Bro Wyman M.D. 02/09/2019 8:55 AM Dictated: 02/09/19 0854 Transcribed: 02/09/[address] head/brain wo con CLINICAL HISTORY: 49 years-old Female with dizzy. Acute dizziness with near syncope TECHNIQUE: Multiple axial CT images of the head were obtained without contrast. A dose lowering technique was utilized adhering to the principles of ALARA. CT DOSE: 776.86 mGycm COMPARISON: None. FINDINGS: No acute intracranial hemorrhage, midline shift, intra-axial mass, hydrocephalus, territorial ischemia or abnormal extra-axial collection. Multiple lipomata measuring up to 8 mm noted about the falx cerebri. The calvarium is intact. The paranasal sinuses, mastoid air cells, and middle ear cavities are clear. IMPRESSION: No acute intracranial abnormality. The above report was generated using voice recognition software. It may contain grammatical, syntax or spelling errors. Electronically signed by: Abilio Lozano M.D. 02/09/2019 11:35 AM Dictated: 02/09/19 1132 Transcribed: 02/09/[address] angio chest PE protocol CLINICAL HISTORY: 49 years-old Female presenting with lightheadedness, clinical concern for pulmonary embolus. TECHNIQUE: Multidetector CT angiography of the chest was performed after administration of intravenous contrast. 3-D volumetric and/or maximum intensity projection (MIP) images were subsequently reconstructed for review. IV contrast: 116 mL of Optiray 320. One or more dose lowering techniques were used consistent with the principles of ALARA (as low as reasonably achievable), including automatic exposure control, mA or kV adjustment to individual patient size, and/or use of iterative reconstruction. COMPARISON: None. CT DOSE (mGy.cm): The estimated cumulative dose is 594.66 mGy.cm. FINDINGS: Machine Plug Shaper topogram: Cholecystectomy clips. Pulmonary vasculature: The study is suboptimal for the assessment of the pulmonary vascular tree secondary to timing of the contrast bolus and respiratory motion artifact. Allowing for limited image quality, no central filling defect to suggest pulmonary embolus. Main pulmonary artery is not enlarged. No flattening of the interventricular septum. No intracardiac filling defect. No reflux of contrast into the hepatic veins. Remaining chest: Soft tissues: Normal thyroid and thoracic inlet. No axillary, supraclavicular, mediastinal, or hilar lymphadenopathy. 4 vessel aortic arch. Normal heart size. No pericardial or pleural effusion. Hepatic steatosis. Lungs and airways: No pneumothorax. Central airways patent. Pulmonary arteries are not significantly enlarged relative to adjacent bronchi. No interlobular septal thickening. Pelvic opacities in the lingula and to a lesser extent in the right middle lobe likely atelectasis. No other focal nodule or infiltrate. Musculoskeletal: Degenerative changes of the spine. IMPRESSION: 1. Allowing for suboptimal image quality, no evidence of pulmonary embolus. No convincing evidence of acute intrathoracic pathology. Electronically signed by: Noah Lopez M.D. 02/09/2019 8:20 PM Dictated: 02/09/192016 Transcribed: 02/09/192016 US venous doppler LE BI CLINICAL HISTORY: 49 years-old Female presenting with elevated D-dimer. TECHNIQUE: Real-time grayscale and color and spectral Doppler ultrasound imaging of the veins of the bilateral lower extremities was performed. Compression and augmentation were also utilized. COMPARISON: None. FINDINGS: RIGHT: Common femoral vein: Patent. Greater saphenous vein (superficial): Patent. Deep femoral vein: Patent. Femoral vein: Patent. Popliteal vein: Patent. Calf veins: Patent. LEFT: Common femoral vein: Patent. Greater saphenous vein (superficial): Patent. Deep femoral vein: Patent. Femoral vein: Patent. Popliteal vein: Patent. Calf veins: Patent. Other: None. IMPRESSION: No evidence of deep venous thrombosis. Electronically signed by: Noah Lopez M.D. 02/09/2019 8:23 PM Dictated: 02/09/192021 Transcribed: 02/09/192021 Hospital Course (1) Lightheadedness: Present on admission with lightheaded/pre-syncope sensation with abnormal EKG CT head showed no acute intracranial abnormality CXR showed mild cardiomegaly. Otherwise negative study. PT/OT with no discomfort Resolved (2) Abnormal EK10/11/15 EKG report from [facility]: T wave inversions inferior lateral leads Troponinx3 negative ECHO showed no wall motion abnormality Cardiology on board recommended genetic testing and outpatient testing for possible channelopathy. metoprolol decreased to 25mg BID due to bradycardia and further titrate off as an outpatient. OK from cardiology standpoint to discharge home (3) Hypertension: BP improved Metoprolol decreased to 25mg BID Continue monitor BP (4) Obesity: Lifestyle modifications with diet and exercise (5) Anxiety: Hx panic attacks. Not on medications. Stable DVT Prophylaxis Heparin SQ Full Code Disposition Follow up with your primary care provider Total Time Total Time Spent Total Time Spent (In Minutes): 35 minutes Discharge Plan Discharge Items Patient Disposition: Home - Self-Care Reason For Visit: LIGHTHEADED , EKG CHANGES Discharge Diagnosis: Lightheadedness Abnormal EKG Hypertension Obesity Condition: Good Discharge Goals: Decrease discomfort, Improve disease control, Improve function and Increase independence Activity: Resume your previous activity Activity Comment: As toleretad Non-emergency contact: Primary Care Provider Call non-emergency contact if: you have any medication questions Follow-up/Referrals: Margret Anthony, [Primary Care Provider] - Diet: Heart Healthy Addtl Provider Instructions: Follow up with your primary care provider Dr. Salguero on 02/17@ 10:30 AM Follow up with cardiology for outpatient work up. Monitor blood pressure Prescriptions: New metoprolol tartrate 25 mg Tablet 25 mg PO BID 30 Days Qty: 60 RF: 0 Continued biotin 1 mg Tablet PO QAM RF: 0 Discontinued metoprolol tartrate 50 mg Tablet 50 mg PO BID RF: 0 Stand-Alone Forms: [facility] Discharge Orders: Discharge Order (Routine); Ordered 02/10/19 Ordered By: Nneka Haines Admission Data Admit Date/Time: 02/09/19 11:25 Attending Provider: Nneka aHines Admit Provider: Humphrey Garrido Primary Care Provider: Margret Anthony Other Providers: Kulwant Martínez John C Service: Telemetry Medical Other Interventions: Discharge Summary Assessment (RN) Last Done: 02/10/19 17:12 DC Date/Time DO NOT enter until pt leaves facility: 02/10/19 18:18
== END 2019-02-10 18:18 | disposition home or self-care (01) ==
LOC: 2N 08:18 → ED 08:18 → SUATTDRO 11:25 → 2N 11:49
DX: R94.31 Abnormal electrocardiogram [ECG] [EKG]; Z88.2 Allergy status to sulfonamides; R42 Dizziness and giddiness; F41.9 Anxiety disorder, unspecified; E66.9 Obesity, unspecified; R79.1 Abnormal coagulation profile; I10 Essential (primary) hypertension; Z82.49 Family history of ischemic heart disease and other diseases of the circulatory system; Z68.43 Body mass index [BMI] 50.0-59.9, adult; Z79.899 Other long term (current) drug therapy

== ENCOUNTER 2023-06-03 10:33 | Observation (INO) ==
--- NOTE | 2023-05-31 08:27 | Anesthesiology Consultation ---
Date of Service May 31, 2023 Assessment & Plan (1) Encounter for pre-operative examination: Chart Review Chart Review: Acceptable Risk for Surgery and Patient NOT seen in Pre Admission Testing -COVID screening: Per PAT nursing assessment on 05/24/23. No known COVID-19 positive contacts or current COVID-19 related symptoms. Travel screen negative. At surgeon discretion if preop Covid testing being done. Patient last seen by cardio 01/09/23= follow for hx of HTN and abnormal EKG. Since last evaluation- patient is doing relatively well. From a cardiac standpoint she is doing very well no further cardiac testing or intervention is necessary at this time. Patient is on good medication regimen and will continue current dose of losartan. Otherwise we will continue to see her on an annual b asis. History Surgery Operation Date: 06/03/23 08:35 Proposed Procedures p Open Repair Ventral Hernia Possible Mesh - Favio Echols MD Height/Weight Height: 5 ft 1 in Weight: 136.078 kg Allergies Allergy/AdvReac Type Severity Reaction Status Date / Time Sulfa (Sulfonamide Allergy Severe feels like Verified 05/24/23 11:26 Antibiotics) heart is pounding out of chest Medications Home Medications Medication Instructions Recorded Confirmed Last Taken biotin 1 mg tablet 1 mg PO QAM 02/09/19 05/24/23 07/17/20 07:00 montelukast 10 mg tablet 10 mg PO QAM 03/17/19 05/24/23 07/17/20 07:00 (Singulair) levothyroxine 25 mcg tablet 25 mcg PO QAM 07/06/19 05/24/23 07/17/20 losartan 50 mg tablet 50 mg PO QAM 07/06/19 05/24/23 07/17/20 07:00 Past Medical History Medical History Abnormal EKG Has seen S cardio in the past- "abnormal baseline EKG with no RWMA present on ECHO and negative work up for channelopathies" Last seen by cardio 01/09/23 (EKG done at that time)- patient stable and no further cardiac testing needed at this time Anxiety no meds Benign positional vertigo successfully treated per records History of colon cancer dx'd 2019. surgery + chemo. Hypertension Hypothyroidism Obesity Past Family History Family History Grandfather Coronary heart disease Sister Hypertension Mother Hypertension Father Family hx colonic polyps Uncle Family hx of colon cancer Family/Other Family hx of colon cancer cousin Other No family history of adverse response to anesthesia Past Surgical History Surgical History History of anesthesia reaction difficulty waking after hysterectomy History of bowel resection DX COLON CANCER. w/ appendectomy. History of cholecystectomy 1999 History of colonoscopy History of ERCP History of hysterectomy 02/2011 - uterus, cervix removed History of incisional hernia repair 08/20/2012 Dr Adames - [facility] History of tooth extraction History of vascular access device INSERTION/REMOVAL PORT S/P BSO (bilateral salpingo-oophorectomy) 07/2012 Social History Smoking Status: Never smoker Do You Dip or Chew Tobacco: No Hx Alcohol Use: Yes alcohol intake frequency: holidays/special occasions only Hx Substance Use: No substance use type: does not use Testing Laboratory Results 05/30/23= WBC: 5.46 H/H: 13.7/43.4 PLATELETS: 124 SODIUM: 146 POTASSIUM: 3.7 CHLORIDE: 105 CO2: 29 BUN: 9 CREATININE: 0.8 GLUCOSE: 128 Electrocardiogram Date: 01/09/23 Normal sinus rhythm at [address] and T wave abnormality, consider lateral ischemia When compared EKG from March 23, 2020minimal criteria for septal infarct are no longer present, ST less depressed in inferior leads, T wave inversion no longer evident in inferior leads. Echocardiogram Date: 02/09/19 EF: 55-60% LV Function: normal RWMA: + none Other Findings: + LVH (Mild/concentric) Valvular Disease: + no significant valvular disease Grade 2 diastolic dysfunction Other Testing Chest CT 11/22/22= Linear opacity at the lingula, consistent with subsegmental atelectasis and/or scar. Lungs otherwise clear. No suspicious pulmonary nodules. No pneumothorax. No pleural effusion. Mild cardiomegaly. No evidence of metastatic disease in the chest.
[~2023-06-03 10:33] MED LIST: 300mg Preop IV SCH; 600mg Preop IV SCH; LR 15ML/HR IV SCH
[2023-06-03] MEDS ORDERED: ACETAMINOPHEN 500 MG TAB PO STA (11:49)
[2023-06-03] MEDS ORDERED: ATROPINE SULFATE 0.1 MG/ML 10ML SYR IV PRN (11:49)
[2023-06-03] MEDS ORDERED: ONDANSETRON INJ 2 MG/ML 2 ML VIAL IV PRN ×2 (11:49→18:05)
[2023-06-03] MEDS ORDERED: ePHEDrine sulfate 50 MG/ML AMP IV PRN (11:49)
[2023-06-03] MEDS ORDERED: LIDOCAINE 1% LOCAL 20 ML VIAL ONE (13:05)
[2023-06-03] MEDS ORDERED: BUPIVACAINE 0.5 % 5 MG/1 ML MPF 30ML VIAL ONE (13:05)
[2023-06-03] MEDS ORDERED: fentaNYL citrate PF 100 MCG/2 ML VIAL ONE (13:10)
[2023-06-03] MEDS ORDERED: MIDAZOLAM HCL 1 MG/ML 2ML VIAL ONE (13:10)
--- NOTE | 2023-06-03 13:10 | History & Physical Bridge Note ---
Date of Service June 03, 2023 History & Physical Bridge Note I have examined the patient, reviewed the History & Physical and in the interval since the performance of the History & Physical I have noted the following changes of clinical significance: no changes noted
[2023-06-03] MEDS: BACITRACIN OINT 14 GM TUBE ONE ×2 (15:12→16:00)
[2023-06-03] MEDS ORDERED: SUGAMMADEX SODIUM 200 MG/2 ML VIAL IV ONE (15:57)
[2023-06-03] MEDS ORDERED: PROPOFOL IV EMULSION 10 MG/ML 20 ML VIAL IV ONE (16:00)
[2023-06-03] MEDS ORDERED: DEXAMETHASONE SOD INJ 4 MG/ML VIAL ONE (16:00)
[2023-06-03] MEDS ORDERED: PHENYLEPHRINE HCL 10 MG/ML VIAL ONE (16:00)
[2023-06-03] MEDS ORDERED: ONDANSETRON INJ 2 MG/ML 2 ML VIAL ONE (16:00)
[2023-06-03] MEDS ORDERED: ROCURONIUM BROMIDE 10 MG/ML 5 ML VIAL IV ONE (16:00)
--- NOTE | 2023-06-03 16:00 | Post Operative Brief Note ---
Immediate Post Op Note v1 Date of Surgery June 03, 2023 Pre & Post Diagnosis Operation Date: 06/03/23 12:05 Pre-Op Diagnosis: Ventral hernia without obstruction and gangrene Post-Op Diagnosis: 3 Ventral hernias and umbilical hernia without obstruction and gangrene I identified the patient and participated in the time-out.: Yes Procedure Operation Date: 06/03/23 12:05 Actual Procedures p Open repair 3 ventral hernias and umbilical hernia with mesh - Favio Echols MD Surgeon Favio Echols MD Chair Car Attendant ELENI Ordonez Estimated Blood Loss 20 Findings Consistent with Post-Op Diagnosis 3 ventral hernias and umbilical hernia Fluids 1100ml Specimens hernia sac Drains Moris-Kate Drain (10mm, Flat) Anesthesia Type General Complications none Disposition Accompanied Patient To Recovery: Yes
[2023-06-03] MEDS: HYDROmorphone INJ 1 MG/ML SYRINGE IV PRN ×4 (16:35→17:08)
--- NOTE | 2023-06-03 16:54 | Anesthesiology Progress Note ---
Date of Service June 03, 2023 Anesthesia Post Procedure Vital Signs Vital Signs: Temp Pulse Pulse Resp BP Pulse Ox O2 Del Method 06/03/23 16:50 77 22 123/74 96 Nasal Cannula 06/03/23 16:40 80 19 129/65 95 Nasal Cannula 06/03/23 16:30 86 21 142/86 H 98 Nasal Cannula 06/03/23 16:24 36.5 C 91 H 10 L 137/77 96 Oxymask 06/03/23 10:47 36.8 C 83 20 173/87 H 95 Room Air O2 Flow Rate 06/03/23 16:50 3 06/03/23 16:40 3 06/03/23 16:30 3 06/03/23 16:24 6 06/03/23 10:47 Pain Intensity Abdomen: Pain Intensity: 4 Transfer of Care Handoff Completed per policy Notes Mental Status: alert / awake / arousable Patient Amnestic to Procedure: Yes Nausea / Vomiting: adequately controlled Pain: adequately controlled Airway Patency, RR, SpO2: stable & adequate BP & HR: stable & adequate Hydration State: stable & adequate Anesthetic Complications: no major complications apparent
[2023-06-03] MEDS ORDERED: HYDROmorphone INJ 1 MG/ML SYRINGE IV PRN (18:05)
[2023-06-03] MEDS ORDERED: oxyCODONE/ACETAMINOPHEN 5mg/325mg TAB PO PRN (18:05)
[2023-06-03] MEDS ORDERED: ACETAMINOPHEN 325 MG TAB PO PRN (18:05)
[2023-06-03] MEDS: LACTATED RINGER'S 1,000 ML IV SCH (18:34)
[2023-06-03] MEDS: ceFAZolin 1000MG 1,000 MG/7.5 ML SYR IV SCH (19:27)
--- NOTE | 2023-06-03 19:46 | Operative Report ---
Post Operative Report Pre & Post Diagnosis Operation Date: 06/03/23 12:05 Pre-Op Diagnosis: Ventral hernia without obstruction and gangrene Post-Op Diagnosis: 3 Ventral hernias and umbilical hernia without obstruction and gangrene I identified the patient and participated in the time-out.: Yes Procedure Operation Date: 06/03/23 12:05 Actual Procedures p Open repair 3 ventral hernias and umbilical hernia with mesh - Favio Echols MD Surgeon aFvio Echols MD Supervisor Stave Cutting ELENI Ordonez Estimated Blood Loss 20 Findings Consistent with Post-Op Diagnosis 3 ventral hernias and umbilical hernia , Fluids 1300ml Specimens hernia sac Drains JENNIFER drainage Anesthesia Type General Complications none Disposition Accompanied Patient To Recovery: Yes Indications Is a 53 years old female who presents symptomatic ventral hernia and umbilical hernia. Commend to do open repair of ventral hernia and umbilical hernia possible mesh. I did talk to patient about benefits the risk and alternatives of the procedure. He indicated the risks may include but not limited such as bleeding, infection, hernia recurrence, seroma, complications related to mesh and injury other organs. Patient understand. She signed informed consent. I Answered all questions. Description of Procedure After we identified patient and verify the procedure. We brought patient to the OR put the patient on the supine position on the OR table. Patient received SCD on bilateral leg to prevent DVT. Patient received 2 g Ancef IV for prophylactic antibiotic. Patient received general anesthesia without difficulty. the Abdomen was propped and dripped in routine fashion. The make about the 14 cm incision left side of the abdomen near the umbilical area by using 15 blade. Dissection to subcutaneous layer. The mobilized the hernia sac. Once we open the hernia sac. then we found patient had 3 ventral hernias. one umbilical hernia. Mobilized the umbilical resections of the umbilical hernia sac and also resection see ventral hernia sac. I will combine 3 ventral hernia and umbilical hernia to 1 hernia. the hernia size of about the 10 x 14 cm. I decided to use 14 x 18 cm mesh to repair hernia. I used two #1 Ethibond suture the mesh to fascial layer interrupt. Then tie each suture one by one. Mesh seated nicely no tension. Hemostat is obtained. Close a subcutaneous layer by using 2-0 Vicryl interrupt. based on multiple hernia. I decided to put a 10 mm JENNIFER drainage near the mesh. Affixes JENNIFER drain nature of the skin by using 2-0 silk. I injections of local anesthesia by using 1% lidocaine mixed with 0.5% Marcaine around the incision site. close skin by using staplers. put the dressing on. The patient tolerated procedure well. All instrument needle sponge count were correct x2 at end of the case. Patient was transferred to recovery room in stable condition. The specimen sent to pathology. After procedure I did talk to patient about the OR finding procedure we did. I recommended a patient was admitted to hospital for overnight control of the postop pain. Patient understand. she agreed to admission to the hospital overnight. After procedure also talk to patient the sister about the OR finding procedure we did. she also agreed to admission to hospital overnight. I attest to the content of the Intraoperative Record and any orders documented therein. Any exceptions are noted below.
[2023-06-04] MEDS: ceFAZolin 1000MG 1,000 MG/7.5 ML SYR IV SCH ×2 (03:56→11:15)
[2023-06-04] MEDS: LACTATED RINGER'S 1,000 ML IV SCH (05:51)
[2023-06-04] MEDS ORDERED: LEVOTHYROXINE SODIUM 25 MCG TABLET PO SCH (06:30)
[2023-06-04 06:52] LABS: Basophils # (auto) 0.01 K/uL (0-0.2); Basophils % (auto) 0.1 %; Hemoglobin 12.2 g/dl (12.0-16.0); Immature Granulocytes # (auto) 0.02 K/uL (0.01-0.20); Immature Granulocytes % (auto) 0.3 %; Lymphocytes # (auto) 0.91 K/uL (1.2-3.4); Lymphocytes % (auto) 11.5 %; Mean Corpuscular Hemoglobin 28.4 pg (25.0-34.0); Mean Corpuscular Hgb Conc 32.1 g/dL (32.0-36.0); Mean Corpuscular Volume 88.4 fL (80.0-100.0); Mean Platelet Volume 12.7 fL (9.4-12.4); Monocytes # (auto) 0.46 K/uL (0.11-0.59); Monocytes % (auto) 5.8 %; Neutrophils # (auto) 6.53 K/uL (1.40-6.50); Neutrophils % (auto) 82.3 %; Platelet Count 124 K/uL (130-400); RDW Coefficient of Variation 14.9 % (11.5-14.5); RDW Standard Deviation 47.4 fL (36.4-46.3); White Blood Count 7.93 K/ul (4.8-10.8)
[2023-06-04 07:02] LABS: Albumin Globulin Ratio 1.6 (0.9-2); Albumin Level 3.8 gm/dl (3.4-5.0); BUN Creatinine Ratio 18.2 (10-20); Bilirubin,Total 0.9 mg/dl (0.2-1.0); Calcium 8.4 mg/dl (8.6-10.3); Creatinine Clr Calc Pharmacy 107.2 ml/min; Est GFR (African American) 101.5 ml/min; Est GFR (Non-African American) 87.5 ml/min; Globulin 2.4 gm/dl (2.5-4.0); Potassium 3.3 mmol/L (3.5-5.1); Total Protein 6.2 gm/dl (6.0-8.3)
[2023-06-04] MEDS ORDERED: LOSARTAN POTASSIUM 50 MG TAB PO SCH (09:00)
[2023-06-04] MEDS ORDERED: NON-FORMULARY MEDICATION (Biotin 1 mg Tablet) PO SCH (09:00)
[2023-06-04] MEDS ORDERED: MONTELUKAST SODIUM 10 MG TABLET PO SCH (09:00)
--- NOTE | 2023-06-04 12:06 | Surgery Progress Note ---
Date of Service June 04, 2023 Assessment & Plan (1) Postoperative follow-up: Plan: pt is a 53 year-old female who had open repair ventral hernia and umbilical hernia with mesh, POD 1 pt is doing fine, no significant incisional pain, no fever, tolerated diet, plan, D/C home today, pt agreed with discharge. I answered all questions. the post-op care instruction was given, F/U me 1 week, Admission and Anticipated Discharge Date Admission Date: June 03, 2023 Subjective F/U S/P open repair ventral hernia and umbilical hernia with mesh, POD 1 pt is doing fine, good control pain. passed BM today, tolerated diet, no fever. JENNIFER 130 ml clear color Physical Exam Constitutional: WD/WN, vitals as above Eyes: PERRL, conjunctivae normal, anicteric sclerae Neck: trachea midline, no thyromegaly Respiratory: normal respiratory effort, lungs clear to auscultation Cardiovascular: RRR, no murmur, no edema Gastrointestinal (Abdomen): soft. mild tenderness at incision site, no rebound pain, no distend, JENNIFER intact. BS +, the incision intact, no redness. Musculoskeletal: no cyanosis or clubbing, extremities motor strength 5/5 Neurologic: patellar DTR's 2+ bilat, sensation intact Psychiatric: A+Ox3, euthymic affect Results & Data Vital Signs (Past 12 Hours) Vital Signs Temp Pulse Resp BP Pulse Ox O2 Del Method 06/04/23 11:17 36.9 C 67 19 116/77 95 Room Air 06/04/23 07:23 36.8 C 65 18 135/82 95 Room Air 06/04/23 02:41 36.5 C 85 16 148/76 H 96 Room Air Laboratory Results Lab Results 06/04/23 06/04/23 Range/Units 06:14 06:14 WBC 7.93 (4.8-10.8) K/ul RBC 4.30 (4.20-5.40) M/uL Hgb 12.2 (12.0-16.0) g/dl Hct 38.0 (37.0-47.0) % MCV 88.4 (80.0-100.0) fL MCH 28.4 (25.0-34.0) pg MCHC 32.1 (32.0-36.0) g/dL RDW Std Deviation 47.4 H (36.4-46.3) fL RDW Coeff of Keiry 14.9 H (11.5-14.5) % Plt Count 124 L (130-400) K/uL MPV 12.7 H (9.4-12.4) fL Immature Gran % (Auto) 0.3 % Neut % (Auto) 82.3 % Lymph % (Auto) 11.5 % [place] % (Auto) 5.8 % Eos % (Auto) 0.0 % Baso % (Auto) 0.1 % Neut # (Auto) 6.53 H (1.40-6.50) K/uL Lymph # (Auto) 0.91 L (1.2-3.4) K/uL [place] # (Auto) 0.46 (0.11-0.59) K/uL Eos # (Auto) 0.00 (0-0.50) K/uL Baso # (Auto) 0.01 (0-0.2) K/uL Immature Gran # (Auto) 0.02 (0.01-0.20) K/uL Sodium 139 (136-145) mmol/L Potassium 3.3 L (3.5-5.1) mmol/L Chloride 105 (98-107) mmol/L Carbon Dioxide 26 (21-32) mmol/L Anion Gap 8 (3-11) BUN 14 (6-23) mg/dl Creatinine 0.77 (0.6-1.2) mg/dl Est Cr Clr Drug Dosing 107.2 ml/min Est GFR ( Amer) 101.5 ml/min Est GFR (Non-Af Amer) 87.5 ml/min BUN/Creatinine Ratio 18.2 (10-20) Glucose 137 H (70-99(Fasting)) mg/dl Calcium 8.4 L (8.6-10.3) mg/dl Total Bilirubin 0.9 (0.2-1.0) mg/dl AST 22 (13-39) U/L ALT 23 (7-52) U/L Alkaline Phosphatase 72 (34-104) U/L Total Protein 6.2 (6.0-8.3) gm/dl Albumin 3.8 (3.4-5.0) gm/dl Globulin 2.4 L (2.5-4.0) gm/dl Albumin/Globulin Ratio 1.6 (0.9-2)
--- NOTE | 2023-06-04 12:21 | Discharge Summary ---
Date of Service June 04, 2023 Admission Exam (Per Admitting) Constitutional WD/WN, vitals as above Eyes PERRL, conjunctivae normal, anicteric sclerae Neck trachea midline, no thyromegaly Respiratory normal respiratory effort, lungs clear to auscultation Cardiovascular RRR, no murmur, no edema Musculoskeletal no cyanosis or clubbing, extremities motor strength 5/5 Neurologic patellar DTR's 2+ bilat, sensation intact Psychiatric A+Ox3, euthymic affect Discharge Data Procedures Performed Operation Date: 06/03/23 12:05 Actual Procedures p Open repair ventral hernia(Not Applicable) - Favio Echols MD Hospital Course (1) Postoperative follow-up: pt is a 53 year-old female who had open repair ventral hernia and umbilical hernia with mesh, POD 1 pt is doing fine, no significant incisional pain, no fever, tolerated diet, plan, D/C home today, pt agreed with discharge. I answered all questions. the post-op care instruction was given, F/U 1 week, admission date 06/03/2023, discharge date 06/04/[address] Echols 1 week,
== END 2023-06-04 13:48 | disposition home or self-care (01) | DRG 354 ==
LOC: ASU 10:33 → INTOOBSV 16:12 → 3N 16:12

== ENCOUNTER 2024-11-11 16:58 | Observation (INO) ==
--- NOTE | 2024-11-11 17:03 | ED Triage Note ---
Date of Service November 11, 2024 Provider in Triage Author: Dayton Robin History of Present Illness This patient was briefly evaluated while in triage. An abbreviated physical exam was performed. This patient is a 54-year-old Female who presents to the ED for evaluation elevated heart rate found at a doctor's appointment today at 1600 in 140s she was not having any symptoms denies CP, SOB, L/D, near syncope history of episode similar to this in the past but resolved-denies dx of afib/aflutter, not on blood thinners Physical Exam GENERAL: NAD CARDIOVASCULAR: tachycardic in 120-140s RESPIRATORY: CTA ABDOMEN: BS x 4. Nontender to palpation. Initial orders for labs and / or imaging were placed and patient was placed in the waiting area until a bed is available. Please see further documentation for the full ED course.
[2024-11-11 17:32] LABS: Basophils # (auto) 0.03 K/uL (0.00-0.20); Basophils % (auto) 0.4 %; Eosinophils % (auto) 1.4 %; Hematocrit (blood only) 45.1 % (37.0-47.0); Hemoglobin 14.5 g/dl (12.0-16.0); Immature Granulocytes # (auto) 0.02 K/uL (0.01-0.20); Immature Granulocytes % (auto) 0.3 %; Lymphocytes # (auto) 1.88 K/uL (1.20-3.40); Mean Corpuscular Hemoglobin 28.3 pg (25.0-34.0); Mean Corpuscular Hgb Conc 32.2 g/dL (32.0-36.0); Mean Corpuscular Volume 87.9 fL (80.0-100.0); Mean Platelet Volume 11.6 fL (9.4-12.4); Monocytes # (auto) 0.39 K/uL (0.11-0.59); Monocytes % (auto) 5.4 %; Neutrophils % (auto) 66.5 %; Platelet Count 130 K/uL (130-400); RDW Coefficient of Variation 14.2 % (11.5-14.5); RDW Standard Deviation 45.5 fL (36.4-46.3); Red Blood Count 5.13 M/uL (4.20-5.40); White Blood Count 7.22 K/ul (4.8-10.8)
[2024-11-11 17:51] LABS: Alanine Aminotransferase 17 U/L (7-52); Albumin Globulin Ratio 1.4 (0.9-2); Albumin Level 4.1 gm/dl (3.4-5.0); Alkaline Phosphatase 110 U/L (34-104); BUN Creatinine Ratio 12.9 (10-20); Bilirubin,Total 0.8 mg/dl (0.2-1.0); Blood Urea Nitrogen 9 mg/dl (6-23); Calcium 9.2 mg/dl (8.6-10.3); Carbon Dioxide 28 mmol/L (21-32); Chloride 104 mmol/L (98-107); Glucose 118 mg/dl (70-99(Fasting)); Total Protein 7.1 gm/dl (6.0-8.3); Troponin I High Sensitivity 29.1 pg/ml (0-14)
[2024-11-11 17:59] LABS: INR 0.9 (0.9-1.1); Partial Thromboplastin Time 27 Seconds (21-31); Prothrombin Time 10.1 Seconds (9.0-12.0)
--- NOTE | 2024-11-11 18:00 | XRay Report ---
Chest radiograph, one view History: Tachycardia Comparison: 10/11/2019 Findings: Single AP view of the chest performed. No focal consolidation or pleural effusion. No pneumothorax. The cardiomediastinal silhouette is within normal limits. Normal pulmonary vascularity. No evidence for lymphadenopathy. No visualized bony or soft tissue abnormality. Impression: Normal chest radiograph Electronically signed by Rakan Ackerman 11-11-2024 6:00 PM
[2024-11-11 18:01] LABS: Thyroid Stimulating Hormone 7.298 uIu/ml (0.300-4.500)
[2024-11-11] MEDS: dilTIAZem HCl 5 MG/ML 5 ML VIAL IV STA (18:04)
--- NOTE | 2024-11-11 18:20 | Emergency Department Note ---
Impression & Plan Atrial fibrillation with rapid ventricular response, Elevated troponin ED Provider Note NAME: ROSEMARY NICHOLS AGE: 54 SEX: F : 1970 ARRIVES VIA: Walk-In INFORMANT: Patient, ED PROVIDER(S): Abdiel Esteban MD CHIEF COMPLAINT: Atrial fibrillation HPI: This is a 54-year-old female presenting for tachycardia. Patient without a follow-up appointment at the cancer center, she had cancer about 5 years ago, and during the assessment did not know that her heart rate is elevated. States that her heart rate was in the 140s. She reports no shortness of breath or chest pain. She has not felt any symptoms including additional dyspnea. She does not know when this started. ROS: See above HPI for pertinent positives & negatives. A total of 10 systems reviewed and were otherwise negative. PAST MEDICAL HISTORY: See Below PAST SURGICAL HISTORY: See Below FAMILY HISTORY: See Below SOCIAL HISTORY: See Below HOME MEDICATIONS: See Below ALLERGIES: See Below VITALS: See Below PHYSICAL EXAMINATION: General: resting comfortably in no acute distress Head: Normocephalic and atraumatic Eyes: Normal inspection, extraocular muscles intact Ear, nose, throat: Normal external exam Neck: Normal range of motion Respiratory: lungs clear to auscultation bilaterally Cardiovascular: Regular rate/rhythm, no murmur GI: soft, nontender, no guarding or rebound Extremities: nontender, moves all extremities Neuro: The patient awake and alert, appropriately conversive, no focal deficits, symmetric faces Skin: Warm, dry, and intact MEDICAL DECISION MAKING: This is a 54-year-old female present for tachycardia. Patient is currently an atrial fibrillation rhythm. She is in A-fib with RVR rates between 120 and 140. -ECG independently interpreted by me with atrial fibrillation with RVR rate of 137, normal QRS, normal QTc, no ST segment elevations consistent with STEMI criteria -Bloodwork is reviewed showing no leukocytosis or anemia. Patient is hypokalemic to 3.1. Magnesium within normal limits. Will give potassium repletion here. -Patient's atrial fibrillation did improve with IV diltiazem, 10 mg. She down normal sinus rhythm -During this time however patient did have an episode of what appeared to be either a flutter versus SVT at a rate of 155 that self resolved. -Patient troponin comes back elevated. -Chest Xray independently interpreted by me showing no pneumothorax, focal opacity, or pleural effusions. -Due to elevated troponin will admit for further evaluation Differential diagnosis: Atrial fibrillation, a flutter, ACS, NSTEMI Diagnostics interpreted by me: ECG: EKG as above Cardiac Monitoring: An order was placed for continuous cardiac monitoring. The monitor shows a rate of 59 with sinus rhythm. Past Med/Surg History Problem List (Updated 11/11/24 @ 22:28 by Abdiel Esteban MD) Elevated troponin (Acute) Atrial fibrillation with rapid ventricular response (Acute) A-fib History of colon cancer dx'd 2019. surgery + chemo. Ventral hernia pre-op diagnosis: ventral hernia and umbilical hernia post-op diagnosis: ventral hernia and umbilical hernia morbid obesity, BMI 54, treatment: weight, I & O Postoperative follow-up History of colon polyps Encounter for pre-operative examination Abnormal EKG (Acute) Lightheadedness (Acute) S/P BSO (bilateral salpingo-oophorectomy) (Chronic) 07/2012 History of incisional hernia repair (Chronic) 08/20/2012 Dr Adames - [facility] History of hysterectomy (Chronic) 02/2011 - uterus, cervix removed History of cholecystectomy (Chronic) 1999 Anxiety (Chronic) no meds Obesity (Chronic) Hypertension (Chronic) Medical History Benign positional vertigo successfully treated per records Abnormal EKG Has seen [facility] cardio in the past- "abnormal baseline EKG with no RWMA present on ECHO and negative work up for channelopathies" Last seen by cardio 01/09/23 (EKG done at that time)- patient stable and no further cardiac testing needed at this time History of colon cancer dx'd 2019. surgery + chemo. Hypothyroidism has not had Rx filled since ~July 2023. states she was "borderline hypothyroid" and was taking low dose due to hair loss. last had TSH on 05/30/2023 3.95 at [facility] (per patient) Anxiety no meds Obesity Hypertension Surgical History H/O ventral hernia repair Dr Echols 05/2023 History of vascular access device INSERTION/REMOVAL PORT History of bowel resection DX COLON CANCER. w/ appendectomy. History of anesthesia reaction difficulty waking after hysterectomy History of colonoscopy History of ERCP History of tooth extraction S/P BSO (bilateral salpingo-oophorectomy) 07/2012 History of incisional hernia repair 08/20/2012 Dr Adames - [facility] History of hysterectomy 02/2011 - uterus, cervix removed History of cholecystectomy 1999 Family History Grandfather Coronary heart disease Sister Hypertension Mother Hypertension Father Family hx colonic polyps Uncle Family hx of colon cancer Family/Other Family hx of colon cancer cousin Other No family history of adverse response to anesthesia Social History Smoking Status: Never smoker Second Hand Exposure: Yes (hx); Do You Dip or Chew Tobacco: No; Hx Alcohol Use: Yes Hx Substance Use: No Preferred Language: Tamazight Communication Ability: Effective Entry Level Marketing Representative Required: No Beliefs That Will Affect Care: None Current Living Situation: Family Current Living Situation Comment: WITH SON Feels Safe at Home: Yes Assistive Devices: None Allergies Allergies Allergy/AdvReac Type Severity Reaction Status Date / Time Sulfa (Sulfonamide Allergy Severe feels like Verified 11/11/24 18:29 Antibiotics) heart is pounding out of chest Home Meds Home Medications Medication Instructions Recorded Confirmed losartan 100 mg tablet 100 mg PO DAILY 11/11/24 11/11/24 Results & Data (ED) Vital Signs Vital Signs - 24 hr 11/11/24 17:00 11/11/24 17:56 11/11/24 17:56 Temperature 35.8 C L Temperature Source Temporal Artery Scan Pulse Rate 136 H Pulse Rate [Apical] 114 H Pulse Rhythm [Apical] Irregular Pulse Strength [Apical] Normal Respiratory Rate 20 22 Respiratory Effort / Characteristics Non-Labored Spontaneous Non-Labored Spontaneous Respiratory Depth Normal Normal Respiratory Pattern Regular Blood Pressure 186/109 H Blood Pressure [Right Arm] 118/95 Blood Pressure Mean 134 Blood Pressure Mean [Right Arm] 102 Blood Pressure Position [Right Arm] Sitting Pulse Oximetry 96 95 95 Oxygen Delivery Method Room Air Room Air Room Air Sepsis Recent Fever Within 48 Hours No Sepsis New/Unexplained Change in Mental Status N/A Sepsis Action Taken by Nursing No Action Required 11/11/24 18:05 11/11/24 18:06 11/11/24 18:15 Temperature Temperature Source Pulse Rate Pulse Rate [Apical] 130 H 115 H 73 Pulse Rhythm [Apical] Irregular Irregular Regular Pulse Strength [Apical] Normal Normal Respiratory Rate 18 16 Respiratory Effort / Characteristics Non-Labored Spontaneous Non-Labored Spontaneous Respiratory Depth Normal Normal Respiratory Pattern Regular Regular Blood Pressure Blood Pressure [Right Arm] 111/88 127/73 Blood Pressure Mean Blood Pressure Mean [Right Arm] 95 91 Blood Pressure Position [Right Arm] Sitting Pulse Oximetry 96 94 Oxygen Delivery Method Room Air Room Air Sepsis Recent Fever Within 48 Hours Sepsis New/Unexplained Change in Mental Status Sepsis Action Taken by Nursing 11/11/24 18:37 Temperature Temperature Source Pulse Rate 72 Pulse Rate [Apical] Pulse Rhythm [Apical] Pulse Strength [Apical] Respiratory Rate Respiratory Effort / Characteristics Respiratory Depth Respiratory Pattern Blood Pressure Blood Pressure [Right Arm] Blood Pressure Mean Blood Pressure Mean [Right Arm] Blood Pressure Position [Right Arm] Pulse Oximetry Oxygen Delivery Method Sepsis Recent Fever Within 48 Hours Sepsis New/Unexplained Change in Mental Status Sepsis Action Taken by Nursing Laboratory Data 11/11/24 17:13 11/11/24 17:59 Lab Results 11/11/24 11/11/24 11/11/24 Range/Units 17:13 17:59 18:32 WBC 7.22 (4.8-10.8) K/ul RBC 5.13 (4.20-5.40) M/uL Hgb 14.5 (12.0-16.0) g/dl Hct 45.1 (37.0-47.0) % MCV 87.9 (80.0-100.0) fL MCH 28.3 (25.0-34.0) pg MCHC 32.2 (32.0-36.0) g/dL RDW Std Deviation 45.5 (36.4-46.3) fL RDW Coeff of [place] 14.2 (11.5-14.5) % Plt Count 130 (130-400) K/uL MPV 11.6 (9.4-12.4) fL Immature Gran % (Auto) 0.3 % Neut % (Auto) 66.5 % Lymph % (Auto) 26.0 % [place] % (Auto) 5.4 % Eos % (Auto) 1.4 % Baso % (Auto) 0.4 % Neut # (Auto) 4.80 (1.40-6.50) K/uL Lymph # (Auto) 1.88 (1.20-3.40) K/uL [place] # (Auto) 0.39 (0.11-0.59) K/uL Eos # (Auto) 0.10 (0.00-0.50) K/uL Baso # (Auto) 0.03 (0.00-0.20) K/uL Immature Gran # (Auto) 0.02 (0.01-0.20) K/uL PT 10.1 (9.0-12.0) Seconds INR 0.9 (0.9-1.1) APTT 27 (21-31) Seconds PTT Ratio 1.0 Sodium TNP 140 Potassium TNP 3.1 L Chloride 104 (98-107) mmol/L Carbon Dioxide 28 (21-32) mmol/L Anion Gap TNP BUN 9 (6-23) mg/dl Creatinine 0.70 (0.6-1.2) mg/dl Est Cr Clr Drug Dosing 115.0 ml/min eGFR 102.07 BUN/Creatinine Ratio 12.9 (10-20) Glucose 118 H (70-99(Fasting)) mg/dl Calcium 9.2 (8.6-10.3) mg/dl Magnesium TNP 1.9 Total Bilirubin 0.8 (0.2-1.0) mg/dl AST TNP 20 ALT 17 (7-52) U/L Alkaline Phosphatase 110 H (34-104) U/L Troponin I High Sens 29.1 H (0-14) pg/ml Total Protein 7.1 (6.0-8.3) gm/dl Albumin 4.1 (3.4-5.0) gm/dl Globulin 3.0 (2.5-4.0) gm/dl Albumin/Globulin Ratio 1.4 (0.9-2) Procalcitonin 0.04 (0-0.5) ng/ml TSH 7.298 H (0.300-4.500) uIu/ml Free T4 0.84 (0.61-1.60) ng/dl Urine Color Yellow Urine Appearance Cloudy A (Clear) Urine pH 6.5 (4.5-7.5) Ur Specific [place] 1.017 (1.000-1.030) Urine Protein Negative (Negative) Urine Glucose (UA) Negative (Negative) Urine Ketones Negative (Negative) Urine Blood Negative (Negative) Urine Nitrite Negative (Negative) Urine Bilirubin Negative (Negative) Urine Urobilinogen Negative (Negative) Ur Leukocyte Esterase Negative (Negative) Urine WBC (Auto) 0-5 (0-5) /hpf Urine RBC (Auto) 0-2 (0-2) /hpf U Hyaline Cast (Auto) 0-2 (0-2) /lpf U Epithel Cells (Auto) 6-10 H (0-2) /hpf Urine Bacteria (Auto) 1+ H (None Seen) 11/11/24 Range/Units 19:04 WBC (4.8-10.8) K/ul RBC (4.20-5.40) M/uL Hgb (12.0-16.0) g/dl Hct (37.0-47.0) % MCV (80.0-100.0) fL MCH (25.0-34.0) pg MCHC (32.0-36.0) g/dL RDW Std Deviation (36.4-46.3) fL RDW Coeff of [place] (11.5-14.5) % Plt Count (130-400) K/uL MPV (9.4-12.4) fL Immature Gran % (Auto) % Neut % (Auto) % Lymph % (Auto) % [place] % (Auto) % Eos % (Auto) % Baso % (Auto) % Neut # (Auto) (1.40-6.50) K/uL Lymph # (Auto) (1.20-3.40) K/uL [place] # (Auto) (0.11-0.59) K/uL Eos # (Auto) (0.00-0.50) K/uL Baso # (Auto) (0.00-0.20) K/uL Immature Gran # (Auto) (0.01-0.20) K/uL PT (9.0-12.0) Seconds INR (0.9-1.1) APTT (21-31) Seconds PTT Ratio Sodium Potassium Chloride (98-107) mmol/L Carbon Dioxide (21-32) mmol/L Anion Gap BUN (6-23) mg/dl Creatinine (0.6-1.2) mg/dl Est Cr Clr Drug Dosing ml/min eGFR BUN/Creatinine Ratio (10-20) Glucose (70-99(Fasting)) mg/dl Calcium (8.6-10.3) mg/dl Magnesium Total Bilirubin (0.2-1.0) mg/dl AST ALT (7-52) U/L Alkaline Phosphatase (34-104) U/L Troponin I High Sens 28.0 H (0-14) pg/ml Total Protein (6.0-8.3) gm/dl Albumin (3.4-5.0) gm/dl Globulin (2.5-4.0) gm/dl Albumin/Globulin Ratio (0.9-2) Procalcitonin (0-0.5) ng/ml TSH (0.300-4.500) uIu/ml Free T4 (0.61-1.60) ng/dl Urine Color Urine Appearance (Clear) Urine pH (4.5-7.5) Ur Specific [place] (1.000-1.030) Urine Protein (Negative) Urine Glucose (UA) (Negative) Urine Ketones (Negative) Urine Blood (Negative) Urine Nitrite (Negative) Urine Bilirubin (Negative) Urine Urobilinogen (Negative) Ur Leukocyte Esterase (Negative) Urine WBC (Auto) (0-5) /hpf Urine RBC (Auto) (0-2) /hpf U Hyaline Cast (Auto) (0-2) /lpf U Epithel Cells (Auto) (0-2) /hpf Urine Bacteria (Auto) (None Seen) Administered Medications Apixaban (Apixaban 5 Mg Tablet) 5 mg PO BID GEN Stop: 12/11/24 20:59 Last Admin: 11/11/24 20:19 Dose: 5 mg Documented By: MEJIA Fluticasone Propionate (Fluticasone Propionate Na Spr 16 Gm Btl) 1 sprays NA DAILY GEN Stop: 12/11/24 19:29 Last Admin: 11/11/24 19:47 Dose: 1 sprays Documented By: MEJIA Potassium Chloride (K Aramis / Wtr) 10 meq in 100 mls @ 100 mls/hr IV Q1H GEN Stop: 11/11/24 22:59 Last Admin: 11/11/24 20:34 Dose: 100 mls/hr Documented By: Infusion: 11/11/24 20:32 Dose: Infused Documented By: Admin: 11/11/24 19:32 Dose: 100 mls/hr Documented By: MEJIA Metoprolol Tartrate (Metoprolol Tartrate 25 Mg Tab) 12.5 mg PO Q6H GEN Stop: 12/11/24 19:14 Last Admin: 11/11/24 19:47 Dose: 12.5 mg Documented By: MEJIA Discontinued Medications Diltiazem HCl (Diltiazem Hcl 5 Mg/Ml 5 Ml Vial) 10 mg IV NOW STA Stop: 11/11/24 18:00 Last Admin: 11/11/24 18:04 Dose: 10 mg Documented By: MEJIA Co-signed By: DEREJE Guaifenesin/Dextromethorphan (Guaifenesin/Dextrom Syrup 100mg/10mg 5ml Udc) 5 ml PO NOW ONE Stop: 11/11/24 19:24 Last Admin: 11/11/24 19:47 Dose: 5 ml Documented By: MEJIA Loratadine (Loratadine 10 Mg Tab) 10 mg PO NOW ONE Stop: 11/11/24 20:38 Last Admin: 11/11/24 21:13 Dose: 10 mg Documented By: MEJIA Potassium Chloride (Potassium Chloride Crtab 20 Meq Tabcr) 40 meq PO NOW STA Stop: 11/11/24 18:43 Last Admin: 11/11/24 19:01 Dose: Not Given Documented By: MEJIA Imaging Data Radiologist's Impression: Chest X-Ray 11/11/24 17:03 Chest radiograph, one view History: Tachycardia Comparison: 10/11/2019 Findings: Single AP view of the chest performed. No focal consolidation or pleural effusion. No pneumothorax. The cardiomediastinal silhouette is within normal limits. Normal pulmonary vascularity. No evidence for lymphadenopathy. No visualized bony or soft tissue abnormality. Impression: Normal chest radiograph Electronically signed by Rakan Ackerman 11-11-2024 6:00 PM Discharge Plan Visit Data Chief Complaint: Tachycardia Stated Complaint: HIGH HEART RATE ED Provider: Abdiel Esteban Discharge Problem: Atrial fibrillation with rapid ventricular response, Elevated troponin Patient Disposition: Admitted As Inpatient Discharge Instructions Interventions: ED Discharge Assessment Last Done: 11/11/24 20:38
[2024-11-11 18:37] LABS: Magnesium 1.9 mg/dl (1.7-2.4); Potassium 3.1 mmol/L (3.5-5.1)
[2024-11-11 18:42] LABS: T4 Free Thyroxine 0.84 ng/dl (0.61-1.60)
[2024-11-11] MEDS: POTASSIUM CHLORIDE CRTAB 20 MEQ TABCR PO STA (19:00)
--- NOTE | 2024-11-11 19:02 | History & Physical Report ---
Date of Service November 11, 2024 Assessment & Plan (1) A-fib: Plan Ms. 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 Patient converted to NSR s/p IV dilt x 1. Will monitor overnight on tele and repeat troponin given mild elevation. # New onset A Fib with RVR #Elevated trop likely demand iso rvr Converted to sinus s/p IV dilt Patient with new atrial fibrillation, with symptoms/onset notable for intermittent palpitations [id number]: 2 - Rate Control: Metoprolol tartrate 12.5mg q6h for now - Anticoagulation: eliquis bid -Recommend weight loss and sleep study -ECHO ordered -UA and Biofire noncontributory -Trend trop -Cards in am #Postnasal drip no indications for antibiotics at this time Claritin and flonase cough syrup prn #Morbid obesity BMI 50.6 counselled weight loss iso afib, discusses op sleep study to rule out matt #Adenocarcinoma s/p right hemicolectomy s/p right hemicolectomy on 05/25/2019 followed by 12 cycles of FOLFOX adjuvant chemotherapy completed 01/29/2020. stable undergoing routine monitoring #HTN Continue losartan 100 mg daily #Hypothyroidism #Abnormal TFT TSH 7.29, t4 0.84 consider repeat in 4 weeks with pcp states she has simply not filled her thyroid meds in "some time" Resume 25mcg synthroid dvt eliquis Full code admit med tele Admission and Anticipated Discharge Date Admission Date: Time spent evaluating patient, direct bedside care, chart review, placing orders, interpretation of diagnostic studies, discussion with consultants, patient, and family members, as well as other required patient management activities is 60 minutes. History of Present Illness Chief Complaint: Abnormal VS at OP visit Primary Care Provider: Margret Anthony DO Ms. 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 Patient states she has been dealing with sinus congestion and post nasal drip for a few weeks, but otherwise has been in normal state of health. She states that she has intermittently felt palpitations, or a "fluttering" in her chest, but noted it was severe this morning when she woke up--however, seemingly res olved. She does endorse snoring, she denies any urinary symptoms or fevers. SHe denies ever being informed of having an abnormal rhythm, but notes her mother has a fib. In the ED, vitals were notable for BP of 110-180s HR of 150s down to 70-80s s/p dilt and O2 sat of mid 90s. Mild, stable trop elevation, K to 3.1 Imaging revealed normal cxr EKG qtc 504 ED interventions: s/p diltazem Patient to be admitted to med/tele for further evaluation and management of new onset atrial fibrillation Allergies Allergy/AdvReac Type Severity Reaction Status Date / Time Sulfa (Sulfonamide Allergy Severe feels like Verified 11/11/24 18:29 Antibiotics) heart is pounding out of chest Home Medications Medication Instructions Recorded Confirmed Type losartan 100 mg tablet 100 mg PO DAILY 11/11/24 11/11/24 History Past Med/Surg History Problem List (Updated 11/11/24 @ 20:28 by Brie Wallis MD) A-fib History of colon cancer dx'd 2019. surgery + chemo. Ventral hernia pre-op diagnosis: ventral hernia and umbilical hernia post-op diagnosis: ventral hernia and umbilical hernia morbid obesity, BMI 54, treatment: weight, I & O Postoperative follow-up History of colon polyps Encounter for pre-operative examination Abnormal EKG (Acute) Lightheadedness (Acute) S/P BSO (bilateral salpingo-oophorectomy) (Chronic) 07/2012 History of incisional hernia repair (Chronic) 08/20/2012 Dr Adames - [facility] History of hysterectomy (Chronic) 02/2011 - uterus, cervix removed History of cholecystectomy (Chronic) 1999 Anxiety (Chronic) no meds Obesity (Chronic) Hypertension (Chronic) Medical History Benign positional vertigo successfully treated per records Abnormal EKG Has seen S cardio in the past- "abnormal baseline EKG with no RWMA present on ECHO and negative work up for channelopathies" Last seen by cardio 01/09/23 (EKG done at that time)- patient stable and no further cardiac testing needed at this time History of colon cancer dx'd 2018. surgery + chemo. Hypothyroidism has not had Rx filled since ~July 2023. states she was "borderline hypothyroid" and was taking low dose due to hair loss. last had TSH on 05/30/2023 3.95 at [facility] (per patient) Anxiety no meds Obesity Hypertension Surgical History H/O ventral hernia repair Dr Echols 05/2023 History of vascular access device INSERTION/REMOVAL PORT History of bowel resection DX COLON CANCER. w/ appendectomy. History of anesthesia reaction difficulty waking after hysterectomy History of colonoscopy History of ERCP History of tooth extraction S/P BSO (bilateral salpingo-oophorectomy) 07/2012 History of incisional hernia repair 08/20/2012 Dr Adames - [facility] History of hysterectomy 02/2011 - uterus, cervix removed History of cholecystectomy 1999 Family History Grandfather Coronary heart disease Sister Hypertension Mother Hypertension Father Family hx colonic polyps Uncle Family hx of colon cancer Family/Other Family hx of colon cancer cousin Other No family history of adverse response to anesthesia Social History Smoking Status: Never smoker Second Hand Exposure: Yes (hx); Do You Dip or Chew Tobacco: No; Hx Alcohol Use: Yes Hx Substance Use: No Preferred Language: Tristanian Communication Ability: Effective Team Physician Required: No Beliefs That Will Affect Care: None Current Living Situation: Family Current Living Situation Comment: WITH SON Feels Safe at Home: Yes Assistive Devices: None Review of Systems Review of Systems: Constitutional: (-) fever/chills, (-) recent loss of weight, (-) appetite changes, (-) night sweats. Head: (-) headache, (-) dizziness. Eye: (-) blurring of vision, (-) double vision, (-) redness. Ear: (-) hearing loss, (-) discharge, (-) vertigo Nose: (-) discharge, (-) bleeding, (-) congestion, (++ post nasal drip. Throat: (-) sore throat, (-) hoarseness of voice, (-) odynophagia. Cardiovascular: (-) chest pain, +) palpitations, (-) syncope, (-) orthopnea, (-) PND, (-) leg swelling. Respiratory: (-) shortness of breath, (+) cough, (-) wheezing, (-) hemoptysis. Neuro: (-) weakness in extremities, (-) numbness, (-) tingling, (-) tremor. Gastrointestinal: (-) belly pain, (-) belly distension, (-) nausea, (-) vomiting, (-) diarrhea, (-) constipation Genitourinary: (-) hematuria, (-) dysuria, (-) polyuria, (-) hesitancy, (-) frequency, (-) urinary incontinence. Musculoskeletal: (-) myalgia, (-) arthralgia. Skin: (-) rashes. Endocrine: (-) heat/cold intolerance. Psychiatry: (-) depression, (-) hallucination. Physical Exam Physical Exam: GENERAL APPEARANCE: AxOx4, generally well-appearing female no acute distress. HEENT: NC, AT. MMM. EOMI, clear conjunctiva, oropharynx clear. erythematous turbinates NECK: Supple without lymphadenopathy. No stiffness or restricted ROM. HEART: Normal rate and regular rhythm, normal S1/S1, no m/r/g LUNGS: CTAB, moving air well. No crackles or wheezes are heard. ABDOMEN: Soft, nontender, nondistended with good bowel sounds heard. EXTREMITIES: Without cyanosis, clubbing, mild edema around ankles . NEUROLOGICAL: Grossly nonfocal. Alert and oriented, moving all 4 extremities. CN not formally tested but appear grossly intact. Skin: Warm and dry without any rash. Results & Data Results & Data Vital Signs (Past 12 Hours) Vital Signs Temp Pulse Pulse Resp BP BP Pulse Ox 11/11/24 18:37 72 11/11/24 18:15 73 16 127/73 94 11/11/24 18:06 115 H 18 111/88 96 11/11/24 18:05 130 H 11/11/24 17:56 114 H 22 118/95 95 11/11/24 17:56 95 11/11/24 17:00 35.8 C L 136 H 20 186/109 H 96 O2 Del Method 11/11/24 18:37 11/11/24 18:15 Room Air 11/11/24 18:06 Room Air 11/11/24 18:05 11/11/24 17:56 Room Air 11/11/24 17:56 Room Air 11/11/24 17:00 Room Air Laboratory Results Short CBC 11/11/24 Range/Units 17:13 WBC 7.22 (4.8-10.8) K/ul Hgb 14.5 (12.0-16.0) g/dl Hct 45.1 (37.0-47.0) % Plt Count 130 (130-400) K/uL BMP 11/11/24 11/11/24 17:13 17:59 Sodium TNP 140 Potassium TNP 3.1 L Chloride 104 Carbon Dioxide 28 BUN 9 Creatinine 0.70 Glucose 118 H Calcium 9.2 Liver Function 11/11/24 11/11/24 Range/Units 17:13 17:59 Total Bilirubin 0.8 (0.2-1.0) mg/dl AST TNP 20 ALT 17 (7-52) U/L Alkaline Phosphatase 110 H (34-104) U/L Albumin 4.1 (3.4-5.0) gm/dl Urine 11/11/24 Range/Units 18:32 Urine Color Yellow Urine Appearance Cloudy A (Clear) Urine pH 6.5 (4.5-7.5) Ur Specific [place] 1.017 (1.000-1.030) Urine Protein Negative (Negative) Urine Glucose (UA) Negative (Negative) Medications Administered Home Medications Medication Instructions Recorded Confirmed Last Taken losartan 100 mg tablet 100 mg PO DAILY 11/11/24 11/11/24 Unknown Active Medications Generic Name Dose Route Start Last Admin Trade Name Freq PRN Reason Stop Dose Admin Apixaban 5 mg 11/11/24 21:00 11/11/24 20:19 Apixaban 5 Mg Tablet PO 12/11/24 20:59 5 mg BID GEN Administration Fluticasone Propionate 1 sprays 11/11/24 19:30 11/11/24 19:47 Fluticasone Propionate Na Spr 16 Gm Btl NA 12/11/24 19:29 1 sprays DAILY GEN Administration Potassium Chloride 10 meq in 100 mls @ 100 mls/hr 11/11/24 19:00 11/11/24 19:32 K Aramis / Wtr IV 11/11/24 22:59 100 mls/hr Q1H GEN Administration Metoprolol Tartrate 12.5 mg 11/11/24 19:15 11/11/24 19:47 Metoprolol Tartrate 25 Mg Tab PO 12/11/24 19:14 12.5 mg Q6H GEN Administration
[2024-11-11] MEDS ORDERED: guaiFENesin/DEXTROM SYRUP 100MG/10MG 5ML UDC PO PRN (19:23)
[2024-11-11] MEDS: POTASSIUM CHLORIDE / WTR 10 MEQ/100 ML PLCT IV SCH (19:32)
[2024-11-11 19:41] LABS: Appearance Urine Cloudy (Clear); Bacteria Urine Automated 1+ (None Seen); Bilirubin Urine Negative (Negative); Blood Urine Negative (Negative); Cast Urine Automated 0-2 /lpf (0-2); Color Urine Yellow; Glucose Urine UA Negative (Negative); Ketones Urine Negative (Negative); Leukocyte Esterase Urine Negative (Negative); Nitrite Urine Negative (Negative); Protein Urine Negative (Negative); RBC Urine Automated 0-2 /hpf (0-2); Specific Gravity Urine 1.017 (1.000-1.030); Urobilinogen Urine Negative (Negative); WBC Urine Automated 0-5 /hpf (0-5); pH Urine 6.5 (4.5-7.5)
[2024-11-11] MEDS: METOPROLOL TARTRATE 25 MG TAB PO SCH (19:47)
[2024-11-11] MEDS: guaiFENesin/DEXTROM SYRUP 100MG/10MG 5ML UDC PO ONE (19:47)
[2024-11-11] MEDS: FLUTICASONE PROPIONATE NA SPR 16 GM BTL SCH (19:47)
[2024-11-11 20:03] LABS: Adenovirus PCR Not Detected (NotDetected); Bordetella parapertussis PCR Not Detected (NotDetected); Bordetella pertussis PCR Not Detected (NotDetected); Chlamydia pneumoniae PCR Not Detected (NotDetected); Coronavirus 229E PCR Not Detected (NotDetected); Coronavirus CoV-2 (COVID19)PCR Not Detected (NotDetected); Coronavirus HKU1 PCR Not Detected (NotDetected); Coronavirus NL63 PCR Not Detected (NotDetected); Coronavirus OC43PCR Not Detected (NotDetected); Human Metapneumovirus PCR Not Detected (NotDetected); Influenza A PCR Not Detected (NotDetected); Influenza B PCR Not Detected (NotDetected); Mycoplasma pneumoniae PCR Not Detected (NotDetected); Parainfluenza Virus 1 PCR Not Detected (NotDetected); Parainfluenza Virus 2 PCR Not Detected (NotDetected); Parainfluenza Virus 3 PCR Not Detected (NotDetected); Parainfluenza Virus 4 PCR Not Detected (NotDetected); Respiratory Syncytial VirusPCR Not Detected (NotDetected); Rhinovirus/Enterovirus PCR Not Detected (NotDetected)
[2024-11-11] MEDS: APIXABAN 5 MG TABLET PO SCH (20:19)
[2024-11-11] MEDS ORDERED: ONDANSETRON INJ 2 MG/ML 2 ML VIAL IV PRN (20:37)
[2024-11-11] MEDS ORDERED: POLYETHYLENE (MIRALAX) 17 GM PACK PO PRN (20:37)
[2024-11-11] MEDS ORDERED: ACETAMINOPHEN 325 MG TAB PO PRN (20:37)
[2024-11-11] MEDS ORDERED: METOPROLOL TARTRATE 25 MG TAB PO SCH (21:00)
[2024-11-11] MEDS: LORATADINE 10 MG TAB PO ONE (21:13)
--- OUTSIDE RECORDS SUMMARY | 2024-11-12 00:13 | External Medical Summary | Summary of Care ---
Author Name Unknown Organization [facility] Address [address] [place] [address] Phone [phone] Care Team Providers Care Master Barber Name Role Phone Margret Anthony DO Primary Care Provider Reason for Visit * Reason Comments Outpatient Testing Encounter Details Date Type Department Care Team (Late st Contact Info) Description 10/31/2024 10:00 AM EST Laboratory Laboratory, [facility] [address] [place] [id number] [facility] [address] [place] [id number] Malignant neoplasm of colon, unspecified part of colon (HCC) Allergies Active Allergy Reactions Criticality Noted Date Comments Sulfamethoxazole-Trimetho prim 06/20/2015 [place] poorly, short of breath after a few doses Sulfate Tachycardia 12/30/2017 documented as of this encounter (statuses as of 10/31/2024) Medications Biotin 1000 MCG Tablet Take 1 Tablet by mouth in the morning. Active Montelukast Sodium 10 MG Oral Tablet (Singulair) Take 1 Tablet by mouth in the morning. 90 Tablet 3 Active Additional Information Patient not taking.Reported on 01/16/2024 Losartan Potassium 100 MG Oral Tablet (Cozaar)Indicat ions:HTN, goal below 140/90 Take 1 Tablet by mouth in the morning. 90 Tablet 3 4 Active Levothyroxine Sodium 25 MCG Oral Tablet (Euthyrox)Indic ations:Abnormal thyroid function test TAKE 1 TABLET BY MOUTH ONCE DAILY AT LEAST 30 MINUTES PRIOR TO BREAKFAST OR OTHER MEDS 30 Tablet 4 Active documented as of this encounter (statuses as of 10/31/2024) Active Problems Problem Noted Date Diagnosed Date Food insecurity 05/29/2021 Overview: Per [facility] Protocol Body mass index (BMI) of 50.0 to 59.9 in adult 0 01/30/2021 Overview: Per Obesity protocol - Per Obesity protocol - Thrombocytopenia 04/27/2020 Personal history of colon cancer 01/29/2020 Colon cancer 11/04/2019 Cancer of ascending colon 05/27/2019 Family history of colon cancer 03/17/2015 History of colonic polyps 03/17/2015 Overview (07/22/2017): ICD-10 update of inactive term Seroma 12/17/2012 Incisional hernia 06/25/2012 HYPERINSULINISM NEC 05/04/2005 Edema 07/26/2004 Elevated liver enzymes 07/26/2004 HTN, goal below 140/90 08/26/2002 documented as of this encounter (statuses as of 10/31/2024) Resolved Problems Problem Noted Date Diagnosed Date Resolved Date Fungal infection 12/23/2019 11/30/2020 Body mass index (BMI) of 45. 0 to 49.9 in adult 09/28/2019 02/02/2021 Overview: Per Obesity protocol - Hypokalemia 07/29/2019 11/30/2020 Body mass index (BMI) of 50. 0 to 59.9 in adult 03/02/2019 10/01/2019 Overview: Per Obesity protocol #1 ADVANCE DIRECTIVE INFORMATION 09/12/2005 08/24/2024 Overview (09/12/2005): No, Advance Directive brochure offered , patient declined. Morbid obesity, BMI not known 07/26/2004 03/04/2019 documented as of this encounter (statuses as of 10/31/2024) Immunizations Name Administration Dates Next Due COVID-19 mRNA, LNP-s, No Pre serve, 2-Dose Series (Moderna) 12/16/2020,11/18/2020 Seasonal Influenza, PF, 6 M & above, IM , (FluLaval or Fluzone) 07/13/2019 TDAP (age 10 and older)(Boostrix) 02/17/2019 documented as of this encounter Social History Tobacco Use Types Packs/Day Years Used Date Smoking Tobacco: Never Smokeless Tobacco: Never Alcohol Use Standard Drinks/Week Comments Yes 0 (1 standard drink = 0.6 oz pur e alcohol) very rare PHQ-2 Answer Date Recorded PHQ-2 Score 0 06/04/2019 Hunger Vital Sign Answer Date Recorded Within the past 12 months, y ou worried that your food would run out before you got the money to buy more. Often true Within the past 12 months, t he food you bought just didn't last and you didn't have money to get more. Sometimes true Childcare Answer Date Recorded Do you feel overwhelmed with taking care of a child, family member or friend? No 04/10/2023 Does your family need help f inding childcare? (Household - for ages 0-17 years) Not on file 04/10/2023 Clothing Answer Date Recorded Have you been unable to get clothing when it was really needed? No 04/10/2023 Is your family able to get c lothes or diapers when needed? (Household - for ages 0-17 years) Not on file 04/10/2023 Personal Safety Answer Date Recorded Do you feel unsafe or have concerns for your saf ety? No 04/10/2023 Do you have concerns for you r family's safety? (Household - for ages 0-17 years) Not on file 04/10/2023 Utilities Answer Date Recorded Do you have trouble paying y our heating, water, or electric bill? No 04/10/2023 Is your family able to pay t he heat, water, or electric bill? (Household - for ages 0-17 years) Not on file 04/10/2023 Does your family have access to good internet? (Household - for ages 0-17 years) Not on file 04/10/2023 Employment Status Answer Date Recorded Are you unemployed or without regular income? No 04/10/2023 Does the household have a re gular source of income? (Household - for ages 0-17 years) Not on file 04/10/2023 Social Connections Answer Date Recorded How often do you feel lonely or isolated from those around you? Sometimes 04/10/2023 Financial Resource Strain Answer Date R ecorded Do you have any trouble payi ng for your medications, or do you think you might in the future? No 04/10/2023 Does your family have troubl e paying for medicine? (Household - for ages 0-17 years) Not on file 04/10/2023 Transportation Needs Answer Date Record ed READ ONLY Do you have troubl e getting a ride to medical visits or work? Never True 04/10/2023 Does your family have a hard time getting a ride to doctors visits? (Household - for ages 0-17 years) Not on file 04/10/2023 Has lack of transportation k ept you from medical appointments, meetings, work, or from getting things needed for daily living? Check all that apply. (Adult - for ages 18 years and over) Not on file 04/10/2023 Do you (or your family) have trouble finding or paying for a ride (transportation)? (Household - for ages 0-17 years) Not on file 04/10/2023 Housing Stability Answer Date Recorded Do you currently live in a s helter or have no steady place to sleep at night? No 04/10/2023 READ ONLY Do you think you a re at risk of becoming homeless? No 04/10/2023 Does your family worry about paying for your home or becoming homeless? (Household - for ages 0-17 years) Not on file 0 04/10/2023 Are you homeless or worried that you might be in the future? (Adult - for ages 18 years and over) Not on file Are you (or your family) solomon eless or worried that you might be in the future? (Household - for ages 0-17 years) Not on file Food Insecurity Answer Date Recorded Do you need food for this week? No 04/10/2023 Are you able to get enough f ood for your family? (Household - for ages 0-17 years) Not on file 04/10/2023 Does your family need food t his week? (Household - for ages 0-17 years) Not on file 04/10/2023 Do you always have enough fo od for your family? (Household - for ages 0-17 years) Not on file 04/10/2023 Comments No Sex and Gender Information Value Date Recorded Sex Assigned at Female 04/10/2023 8:04 PM EDT Legal Sex Female 5:55 AM EST Gender Identity Female 04/10/2023 8:04 PM EDT Sexual Orientation Straight 04/10/2023 8: 04 PM EDT documented as of this encounter Functional Status * Are you deaf or do you have serious difficulty hearing? Answer Date of Assessment Author No 05/25/2019 2:36 PM EDT Joseph Sims LPN * Are you blind or do you have serious difficulty seeing, even when wearing glasses? Answer Date of Assessment Author No 05/25/2019 2:36 PM [place] Joseph Sims LPN * Do you have serious difficulty walking or climbing stairs? (5 years old or older) Answer Date of Assessment Author No 05/25/2019 2:36 PM [place] Joseph Sims LPN * Do you have difficulty dressing or bathing? (5 years old or older) Answer Date of Assessment Author No 05/25/2019 2:36 PM EDT Joseph Sims LPN * Because of a physical, mental, or emotional condition, do you have difficulty doing errands alone such as visiting a doctors office or shopping? (15 years old or older) Answer Date of Assessment Author No 05/25/2019 2:36 PM [place] Joseph Sims LPN documented as of this encounter Mental Status * Because of a physical, mental, or emotional condition, do you have serious difficulty concentrating, remembering, or making decisions? (5 years old or older) Answer Entry Date Author No 05/25/2019 2:36 PM EDT Joseph Sims LPN documented in this encounter Plan of Treatment Upcoming Encounters Date Type Department Care Team (Late st Contact Info) Description 11/11/2024 4:00 PM EST Office Visit Hematology/Oncology Susana Romero [place] [address] [facility] [place] [phone] Maria De Jesus [place], [place] [address] [place] [address] Pending Results Name Type Priority Associated Diagnoses Date /Time COMPREHENSIVE METABOLIC PANEL Lab Routine Malignant neoplasm of colon, unspecified part of colon (HCC) 10/31/2024 9:53 AM EST Scheduled Procedures Name Priority Associated Diagnoses Date/Ti me COLONOSCOPY FLEXIBLE PROXIMA L DIAGNOSTIC Recall History of colon cancer History of colonic polyps Health Maintenance Due Date Last Done Comments Hepatitis C Screening 1987 Hepatitis B Vaccine (1 of 3 - 19+ 3-dose series) 01/15/1988 Cologuard 2014 Fecal Occult Blood Test 2014 Sigmoidoscopy 2014 Pneumococcal Vaccine: 50+ Years (1 of 1 - PCV) 2019 Zoster Vaccines (1 of 2) 2019 Depression Screening 06/04/2020 06/04/2019 COVID-19 Vaccine ( - season) 2024 12/16/2020, 11/18/2020 Influenza Vaccine (FLU shot) (#1) 2024 07/25/2023, 07/27/2020, 07/13/2019 TSH 03/21/2025 03/21/2024, 12/20, 05/30/2023, Additional history exists GFR 05/02/2025 05/02/2024, 01/19, 01/16/2024, Additional history exists Mammogram 05/15/2025 05/15/2024, 04/20, 04/14/2020, Additional history exists Colonoscopy 10/09/2025 10/09/2023, 05/22, 06/15/2020, Additional history exists Colorectal Cancer Screening 10/09/2025 Albumin/Creatinine Ratio 05/30/2026 05/30/2023 Diabetes Screening 05/02/2027 05/02/2024, 0 01/31/2024, 01/16/2024, Additional history exists Lipid Panel 01/15/2029 01/16/2024, 05/21, 03/20/2019, Additional history exists DTap/Tdap Vaccines (2 - Td or Tdap) 02/17/2029 02/17/2019 HPV (Gardasil) Vaccine Aged Out No lo nger eligible based on patient's age to complete this topic MENINGOCOCCAL (MENACTRA/MENVEO) Aged Out No longer eligible based on patient's age to complete this topic documented as of this encounter Medical Devices Not on filedocumented as of this encounter Procedures Procedure Name Priority Date/Time Associated Diagnosis Comments DIFFERENTIAL, AUTOMATED Routine 10/31/2024 9:53 AM EST Malignant neoplasm of colon, unspecified part of colon (HCC) CBC Routine 10/31/2024 9:53 AM EST Malignant neoplasm of colon, unspecified part of colon (HCC) CBC Routine 10/31/2024 9:53 AM EST Malignant neoplasm of colon, unspecified part of colon (HCC) documented in this encounter Results * DIFFERENTIAL, AUTOMATED (10/31/2024 9:53 AM EST) WBC 5.67 4.00 - 10.80 K/uL 10/31/2024 9:58 AM EST [facility] Neutrophils % 65.4 40.0 - 75.0 % 10/31/2024 9:58 AM EST [facility] Lymphocytes % 27.9 18.0 - 42.0 % 10/31/2024 9:58 AM EST [facility] Monocytes % 5.1 1.0 - 11.0 % 10/31/2024 9:58 AM EST [facility] Eosinophils % 1.2 0.0 - 6.0 % 10/31/2024 9:58 AM EST [facility] Basophils % 0.4 0.0 - 2.0 % 10/31/2024 9:58 AM EST [facility] Absolute Neutrophils 3.71 1.80 - 7.70 K/uL 10/31/2024 9:58 AM EST [facility] Absolute Lymphocytes 1.58 1.00 - 4.80 K/ul 10/31/2024 9:58 AM EST [facility] Absolute Monocytes 0.29 0.00 - 1.10 K/uL 10/31/2024 9:58 AM EST [facility] Absolute Eosinophils 0.07 0.00 - 0.70 K/uL 10/31/2024 9:58 AM EST [facility] Absolute Basophils 0.02 0.00 - 0.20 K/uL 10/31/2024 9:58 AM EST [facility] Blood Venous blood specimen / Unknown Venipuncture / Unknown 10/31/2024 9:53 AM EST 10/31/2024 9:53 AM EST Anais French MD LAB BLOOD ORDERABLES Fin al Result [facility] [place] [address] * (ABNORMAL) CBC (10/31/2024 9:53 AM EST) WBC 5.67 4.00 - 10.80 K/uL 10/31/2024 9:58 AM EST [facility] RBC 4.75 3.85 - 5.15 M/uL 10/31/2024 9:58 AM EST [facility] HGB 13.4 12.0 - 15.3 g/dL 10/31/2024 9:58 AM EST [facility] HCT 43.4 36.0 - 45.2 % 10/31/2024 9:58 AM EST [facility] MCV 91.4 81.5 - 97.5 fL 10/31/2024 9:58 AM EST [facility] MCH 28.2 27.0 - 34.0 pg 10/31/2024 9:58 AM EST [facility] MCHC 30.9 32.0 - 36.0 g/dL 10/31/2024 9:58 AM EST [facility] RDW 14.5 11.5 - 15.5 % 10/31/2024 9:58 AM EST [facility] PLT 136(L) 140 - 400 K/uL 10/31/2024 9:58 AM EST [facility] MPV 11.8 6.6 - 11.1 fL 10/31/2024 9:58 AM EST [facility] Blood Venous blood specimen / Unknown Venipuncture / Unknown 10/31/2024 9:53 AM EST 10/31/2024 9:53 AM EST Anais French MD LAB BLOOD ORDERABLES Fin al Result [facility] [place] [address] documented in this encounter Visit Diagnoses Diagnosis Malignant neoplasm of colon, unspecified part of colon (HCC) documented in this encounter Advance Directives * Full Code (Latest Code Status on File) Date Activated Date Inactivated Comments 05/25/2019 11:54 AM 05/27/2019 7:23 PM Question Answer Comments Discussion of Advance Directives occurred with: Not Discussed * Full Code Date Activated Date Inactivated Comments 05/25/2019 8:13 AM 05/25/2019 11:54 AM Question Answer Comments Discussion of Advance Directives occurred with: Not Discussed Care Teams Master Barber Relationship Specialty Start Date End Date Margret Anthony DO [address] [place] [id number] PCP - General Family Medicine 08/19/19 documented as of this encounter
--- OUTSIDE RECORDS SUMMARY | 2024-11-12 00:13 | External Medical Summary ---
Author Name Unknown Address Unknown Organization K0G:[facility] [address] [place] [id number] Laboratory Report Ordering Provider Test Date Status LUZ MARINA LEY 10/31/2024 09:53:13 Final Observation Date Value Abnormality Reference (Units ) Status BUN 10/31/2024 09:53:13 10 6-20 (mg/dL) Final Creatinine 10/31/2024 09:53:13 0.9 0.5-1.0 (mg/dL) Final Glomerular filtration rate/1.73 sq M.predicted [Volume Rate/Area] in Serum, Plasma or Blood by Creatinine-based formula (CKD-EPI) 10/31/2024 09:53:13 80 >=60 (mL/min) Final eGFR is calculated based on the CKD-EPI 2020 equation. Sodium 10/31/2024 09:53:13 141 135-146 (m mol/L) Final Potassium 10/31/2024 09:53:13 3.6 3.5-5.1 (m mol/L) Final Cl 10/31/2024 09:53:13 101 98-107 (mm ol/L) Final CO2 10/31/2024 09:53:13 28 22-32 (mmo l/L) Final Anion gap 10/31/2024 09:53:13 12 7-15 (mmol /L) Final Glucose 10/31/2024 09:53:13 118 70-120 (mg /dL) Final Albumin 10/31/2024 09:53:13 4.1 3.8-5.0 (g /dL) Final AST (Aspartate aminotransferase) 10/31/2024 09:53:13 24 10-35 (U/L) Final Alk Phos 10/31/2024 09:53:13 113 35-130 (U/ L) Final Bilirubin, Total 10/31/2024 09:53:13 0.9 <=1 .2 (mg/dL) Final Calcium 10/31/2024 09:53:13 9.5 8.4-10.2 ( mg/dL) Final Protein 10/31/2024 09:53:13 6.5 6.0-8.3 (g /dL) Final ALT (Alanine aminotransferase) 10/31/2024 09:53:13 21 10-35 (U/L) Final [facility] Location [facility] [place] [place] [address]
--- OUTSIDE RECORDS SUMMARY | 2024-11-12 00:13 | External Medical Summary ---
Author Name Unknown Address Unknown Organization [id number] [address] [place] [id number] Laboratory Report Ordering Provider Test Date Status LUZ MARINA LEY 10/31/2024 09:53:13 Final Observation Date Value Abnormality Reference (Units ) Status WBC, Total 10/31/2024 09:53:13 5.67 4.00-10.8 0 (K/uL) Final RBC 10/31/2024 09:53:13 4.75 3.85-5.15 (M/uL) Final Hemoglobin 10/31/2024 09:53:13 13.4 12.0-15.3 (g/dL) Final HCT 10/31/2024 09:53:13 43.4 36.0-45.2 (%) Final MCV 10/31/2024 09:53:13 91.4 81.5-97.5 (fL) Final MCH 10/31/2024 09:53:13 28.2 27.0-34.0 (pg) Final MCHC 10/31/2024 09:53:13 30.9 32.0-36.0 (g/dL) Final RDW 10/31/2024 09:53:13 14.5 11.5-15.5 (%) Final Platelets 10/31/2024 09:53:13 136 Below low normal 140 -400 (K/uL) Final MPV 10/31/2024 09:53:13 11.8 6.6-11.1 ( fL) Final Performing Location [facility] [address] [place] [id number]
--- OUTSIDE RECORDS SUMMARY | 2024-11-12 00:13 | External Medical Summary ---
Author Name Unknown Address Unknown Organization K0G:[facility] [address] [place] [address] Laboratory Report Ordering Provider Test Date Status LUZ MARINA LEY 10/31/2024 09:53:13 Final Observation Date Value Abnormality Reference (Units ) Status SYNC LEUKOCYTES IN BLOOD BY AUTOMATED COUNT 10/31/2024 09:53:13 5.67 4.00-10.80 (K/uL) Final Segs 10/31/2024 09:53:13 65.4 40.0-75.0 (%) Final Lymphs % 10/31/2024 09:53:13 27.9 18.0-42.0 (%) Final Monos 10/31/2024 09:53:13 5.1 1.0-11.0 (%) Final Eosinophils 10/31/2024 09:53:13 1.2 0.0-6.0 (%) Final Basos 10/31/2024 09:53:13 0.4 0.0-2.0 (%) Final Absolute Segs 10/31/2024 09:53:13 3.71 1.80-7.70 (K/uL) Final Lymphs, absolute 10/31/2024 09:53:13 1.58 1.00-4.80 (K/ul) Final Monos, Abs 10/31/2024 09:53:13 0.29 0.00-1.10 (K/uL) Final Eos, Abs 10/31/2024 09:53:13 0.07 0.00-0.70 (K/uL) Final Basos, Abs 10/31/2024 09:53:13 0.02 0.00-0.20 (K/uL) Final Performing Location [facility] [address] [place] [address]
[2024-11-12] MEDS: LEVOTHYROXINE SODIUM 25 MCG TABLET PO SCH (06:27)
[2024-11-12 07:05] LABS: Hematocrit (blood only) 41.8 % (37.0-47.0); Hemoglobin 13.3 g/dl (12.0-16.0); Mean Corpuscular Hemoglobin 28.4 pg (25.0-34.0); Mean Corpuscular Hgb Conc 31.8 g/dL (32.0-36.0); Mean Corpuscular Volume 89.1 fL (80.0-100.0); Mean Platelet Volume 11.7 fL (9.4-12.4); Platelet Count 107 K/uL (130-400); RDW Coefficient of Variation 14.6 % (11.5-14.5); RDW Standard Deviation 46.7 fL (36.4-46.3); Red Blood Count 4.69 M/uL (4.20-5.40); White Blood Count 4.57 K/ul (4.8-10.8)
[2024-11-12 07:16] LABS: BUN Creatinine Ratio 13.8 (10-20); Calcium 8.5 mg/dl (8.6-10.3); Creatinine Clr Calc Pharmacy 124.3 ml/min; Phosphorus 3.6 mg/dl (2.5-4.9); Potassium 3.4 mmol/L (3.5-5.1)
[2024-11-12 07:22] LABS: Troponin I High Sensitivity 24.9 pg/ml (0-14)
[2024-11-12] MEDS: PERFLUTREN LIPID MICROSPHERE (DEFINITY) IV ONE (07:42)
[2024-11-12] MEDS: LOSARTAN POTASSIUM 50 MG TAB PO SCH (08:31)
--- NOTE | 2024-11-12 08:43 | Cardiology Consultation ---
Date of Consultation November 12, 2024 Assessment & Plan (1) Atrial fibrillation with rapid ventricular response: (2) Abnormal EKG: (3) Hypokalemia: Plan patient admitted with afib RVR in setting of hypokalemia. Duration unknown. No significant symptoms. She converted to NSR with IV diltiazem, IV metoprolol and potassium supplementation in the ER. CHADSVASC score of 2. Recommend anticoagulation therapy with Eliquis 5 mg BID. Recommend metoprolol succinate 25 mg daily Supplement potassium for goal 4-5. HS troponin since admission minimal and flat. Likely due to afib RVR. Echo demonstrated normal LVEF, no wall motion abnormalities. Given her abnormal EKG with T wave inversions in anterior and lateral leads, recommend outpatient ischemic work up. These T wave inversions have been present for many years intermittently. She has no chest pain to suggest angina. However she does have risk factors for CAD and therefore would recommend nuclear Lexiscan stress test as an outpatient. She in agreement to this plan. Case discussed with Dr. Hairston I spent a total of 50 minutes on the date of service in preparation, delivery, and documentation of the care provided to this patient, excluding any time spent in the performance of separately billed services. Radha Neves PA-C Department of Cardiology, [facility] This chart was completed in part utilizing Speech Voice Recognition Software. Grammatical errors, random word insertions, pronoun errors, and incomplete sentences are an occasional consequence of this system due to software limitations, ambient noise, and hardware issues. Any formal questions or concerns about the content, text, or information contained within the body of this dictation should be directly addressed to the provider for clarification. Supervising Physician Co-Signing Physician Notes Patient was seen and examined personally. Care and management as well outlined by advanced provider as above. Personally endorsed. 54-year-old female who presented for routine appointment yesterday and found to be in atrial fibrillation with rapid response. Patient without symptoms no overt inciting cause. Echocardiogram with preserved LV systolic function. Patient spontaneously converted with medical therapies and ER. Plan in future management as outlined above. Continue beta-tito therapy, anticoagulation Ischemic workup as recommended Sleep evaluation if not previously performed I spent a total of 30 minutes on the date of service in preparation, delivery, and documentation of the care provided to this patient, excluding any time spent in the performance of separately billed services. History of Present Illness Reason for Consultation: Atrial fibrillation RVR Requesting Physician: Yasmin Hospitalist Attending Physician: Dr. Hairston History of Present Illness Patient is a 54 year old female who was sent to ER for evaluation after found to have atrial fibrillation RVR at an outpatient hem/onc visit yesterday. Patient was unaware of palpitations or tachypalpitations. No recent symptoms. No SOB or chest pain. Duration unknown. No prior history of PAF. She does admit to intermittent fluttering, but typically does not last long. She reports compliance with home medications. No prior history of blood clots, bleeding issues. No prior TIA/CVA. Upon arrival to ER, patient was treated with IV diltiazem and IV metoprolol. Potassium was low and supplemented. HS troponin just minimally elevated and flat at 29 - 28 - 24 She converted to NSR. started on Eliquis 5 mg BID. At time of consult, patient feeling well. Denies acute cardiac complaints. No chest pain, dyspnea, palpitations, dizziness. She denies recent chest pain or dyspnea. She has baseline abnormal EKG with T wave inversions in inferior and lateral leads. These T wave inversions have been present for many years. She has never had ischemic work up. Echo in 2019 demonstrated normal LVEF with mild concentric LVH, grade II diastolic dysfunction, no significant valvular disease History includes: 1. Hypertension 2. Benign positional vertigo 3. Colon cancer status post chemo 4. Hypothyroidism 5. History of abnormal EKG 6. Obesity Allergies Allergy/AdvReac Type Severity Reaction Status Date / Time Sulfa (Sulfonamide Allergy Severe feels like Verified 11/11/24 18:29 Antibiotics) heart is pounding out of chest Home Medications Medication Instructions Recorded Confirmed Type losartan 100 mg tablet 100 mg PO DAILY 11/11/24 11/11/24 History apixaban 5 mg tablet (Eliquis) 5 mg PO BID #60 tabs 11/12/24 Rx metoprolol succinate 25 mg 25 mg PO QAM #30 tabs 11/12/24 Rx tablet,extended release 24 hr Patient History Medical History Benign positional vertigo successfully treated per records Abnormal EKG Has seen [facility] cardio in the past- "abnormal baseline EKG with no RWMA present on ECHO and negative work up for channelopathies" Last seen by cardio 01/09/23 (EKG done at that time)- patient stable and no further cardiac testing needed at this time Hypothyroidism has not had Rx filled since ~July 2023. states she was "borderline hypothyroid" and was taking low dose due to hair loss. last had TSH on 05/30/2023 3.95 at [facility] (per patient) Surgical History H/O ventral hernia repair Dr Echols 05/2023 History of vascular access device INSERTION/REMOVAL PORT History of bowel resection DX COLON CANCER. w/ appendectomy. History of anesthesia reaction difficulty waking after hysterectomy History of colonoscopy History of ERCP History of tooth extraction Family History Grandfather Coronary heart disease Sister Hypertension Mother Hypertension Father Family hx colonic polyps Uncle Family hx of colon cancer Family/Other Family hx of colon cancer cousin Other No family history of adverse response to anesthesia Social History Smoking Status: Never smoker Second Hand Exposure: Yes (hx); Do You Dip or Chew Tobacco: No; Hx Alcohol Use: No Hx Substance Use: No Preferred Language: Spanish Communication Ability: Effective Fruit And Vegetable Inspector Required: No Beliefs That Will Affect Care: None Current Living Situation: Family Current Living Situation Comment: WITH SON Other Information That Helps Us Care for You: No Feels Safe at Home: Yes Safety Concerns: Feels Safe At This Time Assistive Devices: None Review of Systems Review of Systems: All systems reviewed & are unremarkable except as noted in HPI & below Physical Exam Constitutional: WD/WN, vitals as above + obese; no acute distress Neck: + thick neck Respiratory: normal respiratory effort, lungs clear to auscultation Cardiovascular: Rate/Rhythm: regular rate and regular rhythm Heart Sounds: normal S1 and normal S2; no murmur Vessels: no JVD Extremities: no edema Gastrointestinal (Abdomen): normal bowel sounds, soft, nontender, no hepatosplenomegaly Neurologic: PERRL, EOMI, accommodation nl, no face palsy, no dysarthria Results & Data Vital Signs (Past 12 Hours) Vital Signs Temp Pulse Pulse Resp BP Pulse Ox Pulse Ox 11/12/24 07:58 36.4 C L 63 18 141/85 H 98 11/12/24 06:24 62 133/80 11/12/24 05:53 58 L 11/12/24 03:50 36.6 C 60 20 112/75 96 11/11/24 22:06 58 L 11/11/24 21:51 36.4 C L 62 18 135/84 97 11/11/24 20:57 19 11/11/24 20:55 59 L 19 116/71 93 11/11/24 20:55 93 O2 Del Method O2 Del Method 11/12/24 07:58 Room Air 11/12/24 06:24 11/12/24 05:53 11/12/24 03:50 Room Air 11/11/24 22:06 11/11/24 21:51 Room Air 11/11/24 20:57 11/11/24 20:55 Room Air 11/11/24 20:55 Room Air Laboratory Results Cardiac Enzymes 11/11/24 11/11/24 11/11/24 Range/Units 17:13 17:59 19:04 AST TNP 20 Troponin I High Sens 29.1 H 28.0 H (0-14) pg/ml 11/12/24 Range/Units 06:11 AST Troponin I High Sens 24.9 H (0-14) pg/ml Coagulation 11/11/24 Range/Units 17:13 PT 10.1 (9.0-12.0) Seconds APTT 27 (21-31) Seconds Lipids 11/12/24 Range/Units 06:11 Triglycerides 57 (0-150) mg/dl Cholesterol 111 (0-200) mg/dl HDL Cholesterol 56 mg/dl Cholesterol/HDL Ratio 2.0 (0-5) CBC 11/11/24 11/12/24 Range/Units 17:13 06:11 WBC 7.22 4.57 L (4.8-10.8) K/ul RBC 5.13 4.69 (4.20-5.40) M/uL Hgb 14.5 13.3 (12.0-16.0) g/dl Hct 45.1 41.8 (37.0-47.0) % Plt Count 130 107 L (130-400) K/uL Neut # (Auto) 4.80 (1.40-6.50) K/uL Lymph # (Auto) 1.88 (1.20-3.40) K/uL [place] # (Auto) 0.39 (0.11-0.59) K/uL Eos # (Auto) 0.10 (0.00-0.50) K/uL Baso # (Auto) 0.03 (0.00-0.20) K/uL Comprehensive Metabolic Panel 11/11/24 11/11/24 11/12/24 Range/Units 17:13 17:59 06:11 Sodium TNP 140 141 Potassium TNP 3.1 L 3.4 L Chloride 104 108 H (98-107) mmol/L Carbon Dioxide 28 26 (21-32) mmol/L BUN 9 9 (6-23) mg/dl Creatinine 0.70 0.65 (0.6-1.2) mg/dl Glucose 118 H 112 H (70-99(Fasting)) mg/dl Calcium 9.2 8.5 L (8.6-10.3) mg/dl AST TNP 20 ALT 17 (7-52) U/L Alkaline Phosphatase 110 H (34-104) U/L Total Protein 7.1 (6.0-8.3) gm/dl Albumin 4.1 (3.4-5.0) gm/dl Intake and Output 11/11/24 11/12/24 11/12/24 22:59 06:59 14:59 Intake Total 300 / 800 500 / 800 Balance 300 / 800 500 / 800 Intake: IV 200 / 400 200 / 400 Potassium Chloride / Wtr 10 meq 200 / 400 200 / 400 In 100 ml @ 100 mls/hr IV Q1H GEN Rx#:[id number] Oral 100 / 400 300 / 400 Other: # Unmeasured Voids 1 Weight 127.9 kg 126.2 kg Weight Measurement Method Standing Scale Diagnostic Findings Telemetry reviewed: NSR in the 55-65 bmp range. She converted from afib to NSR around 18:11 yesterday EKG reviewed from admission: Atrial fibrillation wtih RVR ST/T wave abnormality in inferolateral leads EKG reviewed from this morning 11/12/24: NSR T wave abnormality in anterolateral leads Echo report reviewed: Mild LVH LVEF 55-60% No significant valvular disease Borderline LA enlargement Chest X-Ray 11/11/24 17:03 Normal chest radiograph Echo report reviewed dated January 2019: Normal LVEF at 55-60% No wall motion abnormalities Grade II diastolic dysfunction No significant valvular pathology Medications Administered Current Inpatient Medications Acetaminophen (Acetaminophen 325 Mg Tab) 650 mg PO Q4H PRN PRN Reason: Pain or Fever Stop: 12/11/24 20:36 Apixaban (Apixaban 5 Mg Tablet) 5 mg PO BID [facility] Stop: 12/11/24 20:59 Last Admin: 11/11/24 20:19 Dose: 5 mg Fluticasone Propionate (Fluticasone Propionate Na Spr 16 Gm Btl) 1 sprays NA DAILY [facility] Stop: 12/11/24 19:29 Last Admin: 11/11/24 19:47 Dose: 1 sprays Guaifenesin/Dextromethorphan (Guaifenesin/Dextrom Syrup 100mg/10mg 5ml Udc) 5 ml PO Q6H PRN PRN Reason: Cough Stop: 12/11/24 19:22 Levothyroxine Sodium (Levothyroxine Sodium 25 Mcg Tablet) 25 mcg PO DAILYBB [facility] Stop: 12/12/24 06:29 Last Admin: 11/12/24 06:27 Dose: 25 mcg Loratadine (Loratadine 10 Mg Tab) 10 mg PO QAM [facility] Stop: 12/12/24 08:59 Losartan Potassium (Losartan Potassium 50 Mg Tab) 100 mg PO DAILY [facility] Stop: 12/12/24 08:59 Last Admin: 11/12/24 08:31 Dose: 100 mg Metoprolol Tartrate (Metoprolol Tartrate 25 Mg Tab) 12.5 mg PO Q6H [facility] Stop: 12/11/24 19:14 Last Admin: 11/12/24 06:27 Dose: 12.5 mg Ondansetron HCl (Ondansetron Inj 2 Mg/Ml 2 Ml Vial) 4 mg IV Q6H PRN PRN Reason: Nausea Stop: 12/11/24 20:36 Polyethylene Glycol (Polyethylene (Miralax) 17 Gm Pack) 17 gm PO DAILY PRN PRN Reason: Constipation Stop: 12/11/24 20:36
[2024-11-12] MEDS ORDERED: POTASSIUM CHLORIDE CRTAB 20 MEQ TABCR PO STA (08:58)
[2024-11-12] MEDS ORDERED: Nursing to Pharmacy Communication SCH (09:30)
[2024-11-12] MEDS: LORATADINE 10 MG TAB PO SCH (09:30)
[2024-11-12] MEDS: POTASSIUM CHLORIDE PWD 20 MEQ PACK PO ONE (10:05)
[2024-11-12 12:22] VITALS: BP 112/73; RESP 20; TEMP 98.2; O2SAT 96
--- NOTE | 2024-11-12 12:23 | Hospitalist Progress Note ---
Date of Service November 12, 2024 Assessment & Plan (1) A-fib: Plan Ms. 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 Patient converted to NSR s/p IV dilt x 1. Will monitor overnight on tele and repeat troponin given mild elevation. # New onset A Fib with RVR #Elevated trop likely demand iso rvr Converted to sinus s/p IV dilt Patient with new atrial fibrillation, with symptoms/onset notable for intermittent palpitations [id number]: 2 - Rate Control: Metoprolol tartrate 12.5mg q6h for now - Anticoagulation: eliquis bid -Recommend weight loss and sleep study -ECHO ordered -UA and Biofire noncontributory -Trend trop -Cards in am #Postnasal drip no indications for antibiotics at this time Claritin and flonase cough syrup prn #Morbid obesity BMI 50.6 counselled weight loss iso afib, discusses op sleep study to rule out matt #Adenocarcinoma s/p right hemicolectomy s/p right hemicolectomy on 05/25/2019 followed by 12 cycles of FOLFOX adjuvant chemotherapy completed 01/29/2020. stable undergoing routine monitoring #HTN Continue losartan 100 mg daily #Hypothyroidism #Abnormal TFT TSH 7.29, t4 0.84 consider repeat in 4 weeks with pcp states she has simply not filled her thyroid meds in "some time" Resume 25mcg synthroid dvt eliquis Full code admit med tele Admission and Anticipated Discharge Date Admission Date: November 11, 2024 Results & Data Results & Data Vital Signs (Past 12 Hours) Vital Signs Temp Pulse Pulse Resp BP Pulse Ox O2 Del Method 11/12/24 12:21 36.8 C 60 20 112/73 96 Room Air 11/12/24 07:58 36.4 C L 63 18 141/85 H 98 Room Air 11/12/24 06:24 62 133/80 11/12/24 05:53 58 L 11/12/24 03:50 36.6 C 60 20 112/75 96 Room Air
--- NOTE | 2024-11-12 12:24 | Discharge Summary ---
Discharge Summary Date of Service November 12, 2024 Principal Dx & Hospital Course #1 = Principal Diagnosis (1) A-fib: Plan Ms. 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 Patient converted to NSR s/p IV dilt x 1. Will monitor overnight on tele and repeat troponin given mild elevation. New onset A Fib with RVR Pt presented in atrial fibrillation with RVR EKG noting HR 137 Echo noting EF 55-60%, mild LVH, normal wall motion abnormalities, borderline left atrial enlargement Converted to sinus s/p treatment with IV diltiazem Patient with new atrial fibrillation, with symptoms/onset notable for intermittent palpitations [id number]: 2 She was monitored overnight on telemetry and treated with metoprolol Cardiology was consulted, recommended the following for discharge: -metoprolol succinate 25mg daily for rate control -continue with Eliquis 5mg BID for anticoagulation. Pt given coupon on discharge, prior auth started -outpt nuclear stress testing -sleep study if not yet completed Close PCP and cardiology followup after discharge Elevated troponin Trop elevated but falt trend 29.1 to 28 to 24.9 EKG as above with noted a fib with rvr Echo as above without wall motion abnormalities Likely demand ischemia in setting of above Hypothyroidism Abnormal thyroid function testing TSH 7.29, t4 0.84 consider repeat in 4 weeks with pcp states she has simply not filled her thyroid meds in "some time" Resumed 25mcg Synthroid Close PCP followup after discharge Hypokalemia repleted as needed Thrombocytopenia Pt with acute drop in platelets from 130 to 107 PCP followup for continued monitoring and further evaluation Consider peripheral smear if persistent Postnasal drip no indications for antibiotics at this time Claritin and flonase cough syrup prn PCP followup Morbid obesity BMI 50.6 Encourage weight loss in setting of afib Cardiology recommending outpt sleep study if not yet completed PCP followup Adenocarcinoma s/p right hemicolectomy s/p right hemicolectomy on 05/25/2019 followed by 12 cycles of FOLFOX adjuvant chemotherapy completed 01/29/2020. stable undergoing routine monitoring PCP followup HTN Continue losartan 100 mg daily Hypothyroidism Abnormal thyroid function testing TSH 7.29, t4 0.84 consider repeat in 4 weeks with pcp states she has simply not filled her thyroid meds in "some time" Resume 25mcg Synthroid Notes For Next Care Provider Please continue to monitor thyroid function and adjust meds as needed Per cardiology: needs outpt nuclear stress test and sleep study if not yet completed Monitor platelets and electrolytes Please ensure close follow up with Cardiology after discharge Medication Changes From Visit metoprolol succinate 25mg daily Eliquis 5mg BID Levothyroxine 25mcg daily Admission HPI Per Admitting Provider Ms. 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 Patient states she has been dealing with sinus congestion and post nasal drip for a few weeks, but otherwise has been in normal state of health. She states that she has intermittently felt palpitations, or a "fluttering" in her chest, but noted it was severe this morning when she woke up--however, seemingly resolved. She does endorse snoring, she denies any urinary symptoms or fevers. SHe denies ever being informed of having an abnormal rhythm, but notes her mother has a fib. In the ED, vitals were notable for BP of 110-180s HR of 150s down to 70-80s s/p dilt and O2 sat of mid 90s. Mild, stable trop elevation, K to 3.1 Imaging revealed normal cxr EKG qtc 504 ED interventions: s/p diltazem Patient to be admitted to med/tele for further evaluation and management of new onset atrial fibrillation Admission Exam Per Admitting Provider GENERAL APPEARANCE: AxOx4, generally well-appearing female no acute distress. HEENT: NC, AT. MMM. EOMI, clear conjunctiva, oropharynx clear. erythematous turbinates NECK: Supple without lymphadenopathy. No stiffness or restricted ROM. HEART: Normal rate and regular rhythm, normal S1/S1, no m/r/g LUNGS: CTAB, moving air well. No crackles or wheezes are heard. ABDOMEN: Soft, nontender, nondistended with good bowel sounds heard. EXTREMITIES: Without cyanosis, clubbing, mild edema around ankles . NEUROLOGICAL: Grossly nonfocal. Alert and oriented, moving all 4 extremities. CN not formally tested but appear grossly intact. Skin: Warm and dry without any rash. Discharge Exam General: Alert, oriented. No acute distress Psych: Appropriate mood and affect Neuro: No gross deficits HEENT: NC/AT CV: RRR Resp: Breath sounds clear bilaterally, no increased effort of breathing Abdomen:Soft, nontender Extremities: No edema in lower extremities bilaterally. Updated Medication List Medication Instructions Recorded Confirmed Type losartan 100 mg tablet 100 mg PO DAILY 11/11/24 11/11/24 History apixaban 5 mg tablet (Eliquis) 5 mg PO BID #60 tabs 11/12/24 Rx levothyroxine 25 mcg tablet 25 mcg PO DAILYBB #30 tabs 11/12/24 Rx (Synthroid) metoprolol succinate 25 mg 25 mg PO QAM #30 tabs 11/12/24 Rx tablet,extended release 24 hr Hospital Stay Data Consultations 11/12/24 08:00 Consult Cardiology Routine Diagnostic Imagining Performed Chest X-Ray 11/11/24 17:03 Chest radiograph, one view History: Tachycardia Comparison: 10/11/2019 Findings: Single AP view of the chest performed. No focal consolidation or pleural effusion. No pneumothorax. The cardiomediastinal silhouette is within normal limits. Normal pulmonary vascularity. No evidence for lymphadenopathy. No visualized bony or soft tissue abnormality. Impression: Normal chest radiograph Electronically signed by Rakan Ackerman 11-11-2024 6:00 PM Discharge Instructions Given to Patient (Per Discharging Provider) [place], You were admitted and treated for the heart condition atrial fibrillation. You were seen by the die storage clerk who started you on some new medications. Please continue to take these medications as prescribed at home. You will need an outpatient stress test that your primary care provider and Cardiology will help you set up. We also restarted your home thyroid medication. Your pcp will follow up on this for you. In addition, please also keep close follow up with your primary care provider and Cardiology after discharge. Please do not hesitate to come back to the emergency room if your symptoms worsen or return. It was a pleasure taking care of you while you were here. Total Time Total Time Spent Total Time Spent (In Minutes): 65
--- NOTE | 2024-11-12 13:38 | Electrocardiogram Report ---
Test Reason : Blood Pressure : */* mmHG Vent. Rate : 137 BPM Atrial Rate : * BPM P-R Int : * ms QRS Dur : 96 ms QT Int : 334 ms P-R-T Axes : * 14 181 degrees QTcB Int : 504 ms Atrial fibrillation with rapid ventricular response Minimal voltage criteria for LVH, may be normal variant Abnormal ECG When compared with ECG of 11-Oct-2019 22:18, Atrial fibrillation has replaced Sinus rhythm Inverted T waves have replaced nonspecific T wave abnormality in Inferior leads Nonspecific T wave abnormality, improved in Anterior leads Confirmed by Rakan Ortiz ([id number]) on 11/12/2024 1:38:46 PM Referred By: Anais French Confirmed By: Rakan Ortiz
--- NOTE | 2024-11-12 13:48 | Electrocardiogram Report ---
Test Reason : Blood Pressure : */* mmHG Vent. Rate : 60 BPM Atrial Rate : 60 BPM P-R Int : 152 ms QRS Dur : 88 ms QT Int : 494 ms P-R-T Axes : 31 48 132 degrees QTcB Int : 494 ms Normal sinus rhythm T wave abnormality, consider anterolateral ischemia Prolonged QT Abnormal ECG When compared with ECG of 11-Nov-2024 18:24, (unconfirmed) T wave inversion no longer evident in Inferior leads Confirmed by Rakan Ortiz ([id number]) on 11/12/2024 1:48:34 PM Referred By: Anais French Confirmed By: Rakan Ortiz
[2024-11-12] MEDS: METOPROLOL SUCC 25MG EXT REL TAB PO SCH (14:20)
[2024-11-12 14:24] VITALS: PULSE 60
--- NOTE | 2024-11-12 17:10 | Electrocardiogram Report ---
Test Reason : Blood Pressure : */* mmHG Vent. Rate : 69 BPM Atrial Rate : 69 BPM P-R Int : 158 ms QRS Dur : 86 ms QT Int : 426 ms P-R-T Axes : 62 19 177 degrees QTcB Int : 456 ms Normal sinus rhythm Left ventricular hypertrophy with repolarization abnormality Abnormal ECG When compared with ECG of 11-Nov-2024 17:06, Sinus rhythm has replaced Atrial fibrillation Vent. rate has decreased by 68 bpm Nonspecific T wave abnormality, worse in Anterior leads Confirmed by Rakan Ortiz ([id number]) on 11/12/2024 5:10:00 PM Referred By: Anais French Confirmed By: Rakan Ortiz
== END 2024-11-12 15:52 | disposition home or self-care (01) ==
LOC: ED 16:58 → EDINP 16:58 → SUATTDRO 19:07 → 2N 20:38